=== PATIENT | female | born 1995 | race Caucasian/White ===

== ENCOUNTER 2025-01-25 15:27 | Emergency (ER) | payer BC, SELFPAY ==
--- NOTE | ~2025-01-25 | US_ITS ---
EXAMINATION: US OB <= 14 weeks fetus INDICATION: cramping and vaginal bleeding TECHNIQUE: Sonography of the pelvis was performed by transabdominal techniques. COMPARISON: None. RESULT: Uterus: 12.1 x 9.7 x 10.7 cm. Anteverted. Homogenous myometrium. Intrauterine gestational sac: Single present. Yolk sac: Not visualized. Embryo: Single present. [place] rump length: 7.7 cm, corresponding gestational age 13 weeks, 6 days. Gestational heart rate: 153 bpm. Subgestational hematoma: Absent . Right ovary: 4.2 x 1.9 x 4.4 cm. Vascular flow is present. No adnexal mass. Left ovary: Not visualized. No adnexal mass. Pelvis free fluid: None. IMPRESSION: Single, live intrauterine gestation. Estimated Gestational Age: 13 weeks, 6 days by crown rump length. TIGRE by ultrasound 07/27/2025. Reviewed, dictated and finalized at location K. IMPRESSION: Single, live intrauterine gestation. Estimated Gestational Age: 13 weeks, 6 days by crown rump length. TIGRE by ultra sound 07/27/2025.
[2025-01-25 15:30] VITALS: BP 140/73; PULSE 103; RESP 20; TEMP 36.6; O2SAT 100
--- NOTE | 2025-01-25 15:33 | ED_ITS ---
HPI - Female Genitourinary General Chief complaint: Vaginal Bleeding Stated complaint: 13 wks preg, bleeding Time Seen by Provider: 01/25/25 15:32 Focused HPI: Patient is a 30-year-old the female who presents to the ER with concerns of vaginal bleeding and abdominal cramping while . She reports she is approximately 13 weeks along. Patient reports she has had two ultrasounds (9 weeks and 12 weeks) and routine care. Last night patient started experiencing some abdominal cramps. This morning she noticed bright red blood in the toilet after urinating. Patient reports this is her 1st . Her last menstrual period was October 20, 2024. Patient reports she is still experiencing intermittent abdominal cramping. GENERAL: Well-appearing, well-nourished, and in no acute distress. HEAD: Normocephalic, atraumatic. CHEST: Clear to auscultation. ?No respiratory distress. HEART: Tachycardia.? NEURO: ?Alert and oriented x3. Patient screened in triage and initial orders placed.? ?Additional care and disposition to be based upon?diagnostic testing and treatment. Related Data Allergies Allergy/AdvReac Type Severity Reaction Status Date / Time No Known Allergies Allergy Verified 01/25/25 17:43 Review of Systems 2 Review of Systems: All systems reviewed & are unremarkable except as noted in HPI and below Exam 2 Narrative: GENERAL: Well appearing, well-nourished, non-toxic, in no acute distress. HEAD: Normocephalic, atraumatic. NECK: Supple. No adenopathy, no masses. RESPIRATORY: Airway patent, respirations nonlabored. Clear to auscultation bilaterally, no rales, rhonchi, wheezing. CARDIOVASCULAR: Regular rate and rhythm without murmurs, rubs, or gallops. Peripheral pulses 2+ and equal bilaterally. ABDOMINAL: Soft, nontender, nondistended, no hepatosplenomegaly. Normoactive BS. MUSCULOSKELETAL: Moves all extremities. Strength/ROM intact without gross deformities. SKIN: Warm, dry, normal color. No rashes. NEURO: A&O X3. Speech clear. Cranial nerves II-XII intact. No ataxic movements. PSYCHIATRIC: Appropriate mood and affect. Normal interaction. : Pt's vaginal exam indicates a closed cervix. She had a moderate amount of white discharge in her vaginal canal. No noticeable blood upon vaginal exam. Course Vital Signs Vital signs: Vital Signs Temperature 36.6 C 01/25/25 15:30 Pulse Rate 103 H 01/25/25 15:30 Respiratory Rate 20 01/25/25 15:30 Blood Pressure 140/73 01/25/25 15:30 Pulse Oximetry 100 01/25/25 15:30 Oxygen Delivery Room Air 01/25/25 15:30 Temperature 36.6 C 01/25/25 15:30 Pulse Rate 103 H 01/25/25 15:30 Respiratory Rate 20 01/25/25 15:30 Blood Pressure 140/73 01/25/25 15:30 Pulse Oximetry 100 01/25/25 15:30 Oxygen Delivery Room Air 01/25/25 15:30 MDM - Female Genitourinary MDM Narrative Medical decision making narrative: Patient is a 30-year-old the female who presents to the ER with concerns of vaginal bleeding and abdominal cramping while . She reports she is approximately 13 weeks along. Patient reports she has had two ultrasounds (9 weeks and 12 weeks) and routine care. Last night patient started experiencing some abdominal cramps. This morning she noticed bright red blood in the toilet after urinating. Patient reports this is her 1st . Her last menstrual period was October 20, 2024. Patient reports she is still experiencing intermittent abdominal cramping. Labs Ordered: CBC, CMP, PTT, INR, UA Imaging Ordered: Ultrasound Ob less than 14 weeks Medications Ordered: Ceftriaxone IV, 1 L normal saline IV bolus, Flagyl PO Results: Pt's vaginal ultrasound indicates Single, live intrauterine gestation. Estimated Gestational Age: 13 weeks, 6 days by crown rump length. TIGRE by ultrasound 07/27/2025. Diagnosis: Bacterial vaginosis, Urinary tract infection, vaginal bleeding Consults: Kae Strange ([facility]), pt already established, will follow-up outpatient Patient Education/Shared MDM: Patient's vaginal exam was very reassuring, as there was no blood in the vaginal canal. She does have a fair amount of white vaginal discharge, so patient will be discharged home with a prescription for Flagyl, along with her antibiotic to treat her UTI. Results of vaginal exam and ultrasound shared with patient. She was given a dose of IV ceftriaxone here in the ER. Patient strongly advised to maintain hydration status upon discharge and follow-up with her OBGYN as soon as possible. She will be discharged home with a prescription for Macrobid, along with the Flagyl. Strict return precautions provided. Patient verbalized understanding is in agreement with plan. Vital signs stable at time of discharge. All questions answered. Differential Diagnosis Differential diagnosis: Likely urinary tract infection, bacterial vaginosis, vaginitis, cystitis, dysmenorrhea and other (threatened ) Lab Data Attestation: I reviewed the patient's lab results. 01/25/25 15:45 01/25/25 15:45 Labs: Lab Results 01/25/25 01/25/25 01/25/25 Range/Units 15:45 15:53 15:54 WBC 8.5 (4.5-10.0) K/mm3 RBC 3.90 L (4.2-5.4) M/mm3 Hgb 12.0 (12.0-15.0) g/dL Hct 35.6 L (37.0-47.0) % MCV 91.3 (80-100) fl MCH 30.8 (26-34) pg MCHC 33.7 (32-36) g/dl RDW 12.6 (11.5-14.5) % Plt Count 236 (150-375) k/mm3 MPV 10.8 H (7.4-10.4) fl Immature Gran % (Auto) 0.5 (0-0.5) % Neut % (Auto) 74.0 H (45.5-73.1) % Lymph % (Auto) 20.1 (18.3-44.2) % Bru[place] % (Auto) 4.4 (2.6-8.5) % Eos % (Auto) 0.9 (0-4.4) % Baso % (Auto) 0.1 L (0.2-1.2) % Lymph # (Auto) 1.71 (0.9-3.2) K/mm3 Brule # (Auto) 0.4 (0.1-0.6) K/mm3 Eos # (Auto) 0.1 (0-0.3) K/mm3 Baso # (Auto) 0.0 (0.0-0.1) K/mm3 Abs Immat Gran (auto) 0.04 H (0.00-0.031) K/mm3 Absolute Neuts (auto) 6.3 (1.3-6.7) K/mm3 Absolute Nucleated RBC 0.000 (0.0-0.012) K/mm3 Nucleated RBC % 0.0 (0.0-0.2) % PT 13.5 (11.1-14.7) Seconds INR 1.0 APTT 25.4 (22.3-36.8) Seconds Sodium 135 L (137-145) mmol/L Potassium 3.4 (3.4-5.0) mmol/L Chloride 103 (98-107) mmol/L Carbon Dioxide 22 (22-30) mmol/L Anion Gap 10 (4-12) mmol/L BUN 9 (7-17) mg/dL Creatinine 0.51 L (0.7-1.0) mg/dL Estim Creat Clear Calc 139 ml/min Estimated GFR > 60 (59 - ) Glucose 98 (65-110) mg/dL Calcium 8.9 (8.4-10.2) mg/dL Total Bilirubin 0.4 (0.2-1.3) mg/dL AST 20 (14-36) U/L ALT 28 (6-35) U/L Alkaline Phosphatase 43 (38-126) U/L Total Protein 8.0 (6.3-8.2) g/dL Albumin 4.2 (3.5-5.1) g/dL Urine Color Yellow (Yellow) Urine Appearance Cloudy H (Clear) Urine pH 5.5 (5.0-9.0) Ur Specific [place] 1.032 (1.001-1.035) Urine Protein Trace (Negative) mg/dL Urine Glucose (UA) Negative (Negative) mg/dL Urine Ketones Trace H (Negative) mg/dL Ur Blood (Man) 1+ H (Negative) Urine Nitrate Negative (Negative) Urine Bilirubin Negative (Negative) Urine Urobilinogen 0.2 (<2.0) mg/dL Leukocyte Esterase Rfl 1+ H (Negative) ALICIA/UL Urine RBC 0-2 (0-2) /hpf Urine WBC 21-50 H (0-3) /hpf Ur Squamous Epith Cells Moderate (Few) /hpf Urine Bacteria 3+ H /hpf Urine Casts 0-2 POC Urine HCG, Qual Positive (Negative) Imaging Data Attestation: I personally reviewed and interpreted this imaging study as follows: Radiologist's impression: Impressions Ultrasound 01/25/25 16:44 IMPRESSION: Single, live intrauterine gestation. Estimated Gestational Age: 13 weeks, 6 days by crown rump length. TIGRE by ultrasound 07/27/2025. Discharge Plan Discharge Clinical Impression: Vaginal bleeding, Urinary tract infection, Bacterial vaginosis in Patient Disposition: Home, Self-Care Condition: Stable Instructions: Antibiotic Form, Bacterial Vaginosis (ED), Urinary Tract Infection in (ED) Additional Instructions: Please return to the ER with any worsening symptoms. Follow-up with your OBGYN as soon as possible. Take all medications as prescribed, including regularly scheduled medications. Complete your full dose of antibiotics. Patient Language: Sammarinese Follow-up/Referrals: Kae Strange CNM [Primary Care Provider] - Time of Disposition: 17:49
[2025-01-25 15:51] LABS: Basophils Percent Auto 0.1 % (0.2-1.2); Eosinophils Absolute Auto 0.1 K/mm3 (0-0.3); Eosinophils Percent Auto 0.9 % (0-4.4); Hematocrit 35.6 % (37.0-47.0); Immature Granulocyte Absolute 0.04 K/mm3 (0.00-0.031); Immature Granulocyte Percent A 0.5 % (0-0.5); Lymphocytes Absolute Auto 1.71 K/mm3 (0.9-3.2); Lymphocytes Percent Auto 20.1 % (18.3-44.2); Mean Corpuscular HGB Conc 33.7 g/dl (32-36); Mean Corpuscular Hemoglobin 30.8 pg (26-34); Mean Corpuscular Volume 91.3 fl (80-100); Mean Platelet Volume 10.8 fl (7.4-10.4); Monocytes Absolute Auto 0.4 K/mm3 (0.1-0.6); Monocytes Percent Auto 4.4 % (2.6-8.5); Neutrophils Absolute Auto 6.3 K/mm3 (1.3-6.7); Platelet Count Result 236 k/mm3 (150-375); Red Cell Distribution Width 12.6 % (11.5-14.5); White Blood Count 8.5 K/mm3 (4.5-10.0)
[2025-01-25 15:56] LABS: BEDSIDEPREGUCG Positive (Negative)
[2025-01-25 16:03] LABS: Alanine Aminotransferase 28 U/L (6-35); Albumin Level 4.2 g/dL (3.5-5.1); Alkaline Phosphatase 43 U/L (38-126); Anion Gap 10 mmol/L (4-12); Aspartate Amino Transferase 20 U/L (14-36); Bilirubin,Total 0.4 mg/dL (0.2-1.3); Blood Urea Nitrogen 9 mg/dL (7-17); Calcium 8.9 mg/dL (8.4-10.2); Carbon Dioxide 22 mmol/L (22-30); Chloride 103 mmol/L (98-107); Estimated CRCL calculation 139 ml/min; Estimated Glomerular Filt Rate > 60; Glucose 98 mg/dL (65-110); Potassium 3.4 mmol/L (3.4-5.0); Sodium 135 mmol/L (137-145)
[2025-01-25 16:06] LABS: Add Urine Microscopic? YES; Appearance Urine Cloudy (Clear); Bacteria Urine 3+ /hpf; Bilirubin Urine Negative (Negative); Blood Urine 1+ (Negative); Color Urine Yellow (Yellow); Glucose Urine UA Negative (Negative); Ketones Urine Trace mg/dL (Negative); Leukocyte Esterase Ur 1+ LEU/UL (Negative); Nitrate Urine Negative (Negative); Non Pathogenic Casts 0-2; Protein Urine Trace mg/dL (Negative); RBC Urine 0-2 /hpf (0-2); Specific Grav Ur 1.032 (1.001-1.035); Squamous Epithelial Cell Urine Moderate /hpf (Few); Urobilinogen Urine 0.2 mg/dL (<2.0); WBC Urine 21-50 /hpf (0-3); pH Urine 5.5 (5.0-9.0)
[2025-01-25 16:10] LABS: Prothrombin Time 13.5 Seconds (11.1-14.7)
[2025-01-25 16:11] LABS: Partial Thromboplastin Time 25.4 Seconds (22.3-36.8)
[2025-01-25] MEDS: SODIUM CHLORIDE 0.9% IV 1,000 ML 999 ML IV CONT (17:05)
--- OUTSIDE RECORDS SUMMARY | 2025-01-25 18:02 | XMS_ITS | Data Portability ---
Author Organization [facility] Address [address] [place] [address] Assessment No assessment recorded. Plan of Treatment Reminders Order Date Submit Date Provider Last Modified By Organization Details Last Modified Time Details Appointments None recorded. Lab RPR (rapid plasma reagin), serum [address] [facility], [address] [place] [address], [address], [place], [address], 7 14:13:43 CT + NG + TV, DNA, urine/swab [address] [facility], [address] [place] [address], [address], [place], [address], 7 14:13:42 hepatitis panel (A+B+C), acute, serum [address] [facility], [address] [place] [address], [address], [place], [address], 7 14:13:41 HIV 1+2 AB + HIV 1 p24 Ag, qualitativ e immunoassa y, serum [address] [facility], [address] [place] [address], [address], [place], [address], 7 14:13:43 Referral None recorded. Procedures None recorded. Surgeries None recorded. Imaging None recorded. Medication Orders azithromyc in 500 mg tablet 2016 017 [id number], [address], [place], [address], 7 19:08:09 Patient TargetsNo targets recorded. Patient InstructionsNo instructions recorded. Reason for Referral None Reported. Results Created Date Observation Date Name Description Value Unit Range Abnormal Flag Note LastModifiedBy Organization Detail LastModifiedTime 11/22/19 17 11/23/2016 hepat itis panel (A+B+ C), acute , serum hep A Ab, IgM NEGATI VE negati ve Not Available [facility] ([facility]) [address] [place], [address], 11/26/2016 14:13:41 11/22/19 17 11/23/2016 hepat itis panel (A+B+ C), acute , serum HBsAg screen NEGATI VE negati ve Not Available [facility] ([facility]) [address] [place], [address], 11/26/2016 14:13:41 11/22/19 17 11/23/2016 hepat itis panel (A+B+ C), acute , serum hep B core Ab, IgM NEGATI VE negati ve Not Available [facility] ([facility]) [address] [place], [address], 11/26/2016 14:13:41 11/22/19 17 11/23/2016 hepat itis panel (A+B+ C), acute , serum hep C virus Ab <0.1 S/co_ ratio 0.0-0. 9 NEGAT ABDIRAHMAN: < 0.8 INDET ERMIN ATE: 0.8 - 0.9 POSIT ABDIRAHMAN: > 0.9 THE CDC RECOM MENDS THAT A POSIT ABDIRAHMAN HCV ANTIB CYNTHIA RESUL T BE FOLLO WED UP WITH A HCV NUCLE IC ACID AMPLI FICAT ION TEST (5507 [id number]). Not Available [facility] ([facility]) [address] [facility], [place], [address], 11/26/2016 14:13:41 11/22/19 17 11/26/2016 CT + NG + TV, DNA, urine /swab chlamydia by KING POSITI VE negati ve abnormal Not Available [facility] ([facility]) [address] [place] [address], [id number], 11/26/2016 14:13:42 11/22/19 17 11/26/2016 CT + NG + TV, DNA, urine /swab gonococcus by KING NEGATI VE negati ve Not Available [facility] ([facility]) [address] [place] [address], [id number], 11/26/2016 14:13:42 11/22/19 17 11/26/2016 CT + NG + TV, DNA, urine /swab trich vag by KING NEGATI VE negati ve Not Available [facility] ([facility]) [address] [place] [address], [address], 11/26/2016 14:13:42 11/22/19 17 11/23/2016 RPR (rapi d plasm a reagi n), serum RPR NON REACTI VE non reacti ve Not Available [facility] ([facility]) [address] [place] [address], [address], 11/26/2016 14:13:43 11/22/19 17 11/23/2016 HIV 1+2 AB + HIV 1 p24 Ag, quali tativ e immun oassa y, serum HIV screen 4TH generation wrfx NON REACTI VE non reacti ve Not Available [facility] ([facility]) [address] [place] [address], [address], 11/26/2016 14:13:43 Result Notes None recorded. Medical Equipment None Reported. Medications Name Sig Start Date Stop Date Status Note LastModified by Organization Details LastModified Time azithromycin 500 mg tablet Take 2 tablets by oral route once. 2016 active Not Available Not Available Not Avai lable Vitals Date Recorded Body height Body weight Body mass index (BMI) Heart rate Oxygen saturation Oxygen saturation in Arterial blood by Pulse oximetry Body temperature Systolic blood pressure Diastolic blood pressure Provider Name and Address Organization Details Last Updated DateTime 7 157.48 cm 86132.9 7 g 24.7 kg/m2 89 /min 95 % 95 % 98.5 [degF] 100 mm[Hg] 60 mm[Hg] [facility] - [facility] 7 18:59:26 Social History None recorded. Functional Status None recorded. Mental Status None recorded. Family History Nothing Reported. Medical History No medical history recorded. Gynecological HistoryNo gynecological history recorded. Obstetrics History GPAL:G 0 P 0 0 0 0 Past Encounters Encounter ID Performer Location Encounter Start Date Encounter Closed Date Diagnosis/Indication Diagnosis SNOMED-CT Code Diagnosis ICD10 Code Diagnosis Note [id number] Raghu Rubio PA-C [facility] [address] [place] [address] 11/21/2016 18:42:40 11/22/2016 10:40:26 Venereal disease screening 148000267 Z11.3 Will screen for STI and report results when available. Advised pt to limit number of partners and always use condoms to reduce STI risk. Chlamydial urethritis 23 5007195 A56.01 Will treat with Azithromyc in. Take as directed and abstain from sexual activity x 2 weeks. Partner will need to be treated as well. Health Concerns Section Related Observation LastModified by Organization Detai ls LastModified Time None Recorded Concern Status LastModified by Organization Details LastModified Time None Recorded Advance Directives Directive None Recorded Payers Encounter Date Sequence Insurance Name Policy Number Policy Peralta Covered Member ID Peralta Member ID Guarantor Name 11/21/2016 1 [place] [id number] Cory Seaman [id number] Danette Seaman 11/21/2016 2 [place] [id number] Senait Seaman [id number] Danette Seaman Notes Date Note Type Note Provider Name and Address Organization Details Recorded Time 11/21/2016 text/html Danette is a [age] year old female here today for STI screening. She recently tested positive for chlamydia for [facility] but was only treated for BV. She has no other concerns at this time. She is experiencing vaginal discharge and dysuria, but denies fever, abdominal pain or vaginal lesions. Raghu Rubio PA-C Attn: [employer]ing,[address], [place], [address], [place] [facility] 11/21/2016 19:11:37 OBGyn Episode No OBEpisode recorded.
--- OUTSIDE RECORDS SUMMARY | 2025-01-25 18:02 | XMS_ITS | Clinical Summary ---
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 Gender Identity Not on file Sexual Orientation Not on file Plan of Treatment Health Maintenance Due Date Last Done Comments Hepatitis C Virus (HCV) Screening 1997 Pap Smear 2018 Influenza Immunization (#1) 2024 11/0 11/2014, 10/06/2013, 07/10/2011 SARS-COV-2 Immunization ( season) 2024 Respiratory Syncytial Virus (RSV) Immunization (Adult) (1 - 1-dose 75+ series) 01/16/2072 Hepatitis B Immunization Completed 998, 1997, 1997 DTaP/Tdap/Td Immunization Discontinued 2008, 01/17/2001, 08/29/1998, Additional history exists Meningococcal Immunization (ACWY) Aged Out 06/29/2009 No longer eligible based on patient's age to complete this topic TdaP Immunization Completed 06/29/2009 Human Papillomavirus (HPV) Immunization Discontinued 06/17/2011, 11/10/2010, 07/03/2010 Pneumococcal Immunization Combined Aged Out No longer eligible based on patient's age to complete this topic Rotavirus Immunization Aged Out No lo nger eligible based on patient's age to complete this topic
--- OUTSIDE RECORDS SUMMARY | 2025-01-25 18:02 | XMS_ITS | Clinical Summary ---
Author Organization [facility] Address [address] [place] [address] Care Team Providers Care Biofuels Engineering Manager Name Role Phone Unavailable Primary Care Provider Unavailabl e Source Comments [facility],non-owned Affiliates and Associated Physician Practices is amultiple site organization consisting of ambulatory clinics and hospital sitesin [place], [place], [place]. This disclosure is being madepursuant to the Care Everywhere program and may not contain all information available regarding this patient. Last updated 18.[facility] Allergies No known active allergies Medications * Be aware that medications may not be up to date on this document. Alwaysverify current medications with the patient. Medication Sig Dispensed Refills Start Date End Date Status fluticasone propionate (FLONASE) 50 MCG/ACT nasal sprayIndications:Acut e otitis media, unspecified otitis media type [place] 2 sprays into each nostril once daily 1 bottles 11/10/2018 Active albuterol HFA (VENTOLIN HFA) 108 (90 BASE) MCG/ACT inhalerIndications:Ac hao bronchitis, unspecified organism Inhale 2 puffs by mouth every 6 hours as needed for Wheezing or Cough 1 Inhaler 11/10/2018 Active Active Problems No known active problems Family History Medical History Relation Name Comments Eczema Father Other - Cardiac Mother Asthma Neg Hx Autoimmune Disease Neg Hx Bipolar Disorder Neg Hx Cancer - Breast Neg Hx Cancer - Colon Neg Hx Cancer - Other Neg Hx Cancer - Ovarian Neg Hx Cancer - Pancreatic Neg Hx Cancer - Prostate Neg Hx Depression Neg Hx Hypertension Neg Hx Migraine Neg Hx Osteoporosis Neg Hx Seizures Neg Hx Sudd. <30 Neg Hx Thyroid Disease Neg Hx Ulcerative Colitis Neg Hx Relation Name Status Comments Father Alive Mother Alive Social History Tobacco Use Types Packs/Day Years Used Date Smoking Tobacco: Never Smokeless Tobacco: Never Tobacco Cessation:Counseling Given: No Alcohol Use Standard Drinks/Week Comments Yes 0 (1 standard drink = 0.6 oz pur e alcohol) occ Sex and Gender Information Value Date Recorded Sex Assigned at Not on file Gender Identity Not on file Sexual Orientation Not on file Last Filed Vital Signs Vital Sign Reading Time Taken Comments Blood Pressure 108/70 11/10/2018 10:24 AM PRINCIPAL SECRETARY Pulse 88 11/10/2018 10:24 AM PRINCIPAL SECRETARY Temperature 37 C (98.6 F) 11/10/2018 10:24 AM PRINCIPAL SECRETARY Respiratory Rate 17 11/10/2018 10:24 AM PRINCIPAL SECRETARY Oxygen Saturation 98% 11/10/2018 10:24 AM PRINCIPAL SECRETARY Inhaled Oxygen Concentration - - Weight 65.8 kg (145 lb) 11/10/2018 10:24 AM PRINCIPAL SECRETARY Height 157.5 cm (5' 2 ) 11/10/2018 10:24 AM PRINCIPAL SECRETARY Body Mass Index 26.52 11/10/2018 10:24 AM PRINCIPAL SECRETARY Plan of Treatment Health Maintenance Due Date Last Done Comments PAP SMEAR 1997 HIV SCREENING 01/16/2012 HEPATITIS C SCREENING 01/11/2015 DTAP/TDAP/TD VACCINES (1 - Tdap) 01/16/2016 HEPATITIS B VACCINE (1 of 3 - 19+ 3-dose series) 01/16/2016 COVID-19 VACCINE ( - 2023-2 5 season) 2024 INFLUENZA VACCINE (#1) 2024 DEPRESSION SCREENING 11/03/2024 ZOSTER VACCINE (1 of 2) 2047 HIB VACCINE Aged Out No longer eligi ble based on patient's age to complete this topic HPV VACCINE Aged Out No longer eligi ble based on patient's age to complete this topic MENINGOCOCCAL (Group B) VACC INE SHARED DECISION-MAKING Aged Out No longer eligibl e based on patient's age to complete this topic MENINGOCOCCAL GROUPS A/C/Y/W VACCINE Aged Out No longer eligible b ased on patient's age to complete this topic PNEUMOCOCCAL VACCINE Aged Out No long er eligible based on patient's age to complete this topic
[2025-01-25] MEDS: metroNIDAZOLE 500 MG TABLET PO (18:10)
[2025-01-25 18:14] VITALS: BP 125/66; PULSE 89; RESP 18; O2SAT 100
--- OUTSIDE RECORDS SUMMARY | 2025-01-25 18:24 | XMS_ITS | Clinical Summary ---
Author Organization [facility] Address [address] [place] [id number] Care Team Providers Care Tin Cutter Name Role Phone Brooks Rebolledo MD Primary Care Provider [phone] Allergies No known active allergies Medications No known medications Active Problems No known active problems Immunizations Name Administration Dates Next Due Dtap 01/17/2001, 8,1997, 997,1997 Fluzone 6 Months+ Quad (0.5 mL Prefilled Syringe) 11/08/2020 HPV4 (Gardasil) 06/17/2011,11/10/2010,07/03/2010 Hepatitis B (Generic Peds) 02/09/1998,1997 ,1997 IPV/OPV 01/17/2001,1997,1997 Influenza Adult (Generic) 10/20/2021 MMR 03/01/2003,02/09/1998 Menactra 06/29/2009 Opv 08/29/1998 [employer] COVID-19 (ORIGINAL FORMULATION, PURPLE CAP) mRNA, LNP-S, PF, 30 MCG/0.3 ML DOSE 02/20/2021,01/03/2021 Tdap (Boostrix) 06/29/2009 Varicella Vaccine 03/05/2007,06/27/1998 Family History Medical History Relation Comments Alcohol Abuse Father COPD Father Diabetes Father Kidney Cancer Maternal Grandfather Arthritis Maternal Grandmother None Mother Colon Cancer Paternal Grandfather Lung Cancer Paternal Grandfather Relation Status Comments Father Alive Maternal Grandfather Maternal Grandmother Mother Alive Paternal Grandfather Social History Tobacco Use Types Packs/Day Years Used Date Smoking Tobacco: Never Smokeless Tobacco: Never Tobacco Cessation:Counseling Given: No Alcohol Use Standard Drinks/Week Comments Yes 0 (1 standard drink = 0.6 oz pur e alcohol) SOCIAL AUDIT-C Answer Date Recorded Frequency of Alcohol Consumption Never 02/08/2019 Average Number of Drinks Not on file 019 Frequency of Binge Drinking Not on file 06/2019 PHQ-2 Answer Date Recorded Patient Health Questionnaire-2 Score 0 05/05/2024 Comments No Sex and Gender Information Value Date Recorded Sex Assigned at Not on file Legal Sex Female 1:24 PM CDT Gender Identity Not on file Sexual Orientation Not on file Last Filed Vital Signs Vital Sign Reading Time Taken Comments Blood Pressure 112/75 05/05/2024 8:13 AM CDT Pulse 91 05/05/2024 8:13 AM CDT Temperature 36.7 C (98.1 F) 05/05/2024 8:13 AM CDT Respiratory Rate 16 05/05/2024 8:13 AM CDT Oxygen Saturation 99% 05/05/2024 8:13 AM CDT Inhaled Oxygen Concentration - - Weight 76.2 kg (168 lb) 05/05/2024 8:13 AM CDT Height 157.5 cm (5' 2 ) 05/05/2024 8:13 AM CDT Body Mass Index 30.73 05/05/2024 8:13 AM CDT Plan of Treatment Health Maintenance Due Date Last Done Comments Cervical Cancer Screening Pap Smear (Age 21 to 29) Every 3 Years 1997 Pneumococcal Vaccine: Pediatrics (0 to 5 Years) and At-Risk Patients (6 to 64 Years) (1 of 2 - PCV) 2003 DTaP, Tdap and Td Vaccines (7 - Td or Tdap) 06/29/2019 06/29/2009, 01/17/2001, 08/29/1998, Additional history exists COVID-19 Vaccine ( season) 2024 10/20/2021, 02/20/2021, 01/30/2021, Additional history exists Influenza Adult (#1) 2024 10/20/2021, 11/08/2020, 09/03/2015, Additional history exists PHQ-2 (Physician [place]) 11/03/2024 05/05/2024 Annual Physical 05/05/2025 05/05/2024, 11/08/2020 Cervical Cancer Screening 05/05/2025 Po stponed from 1997 (Going to Outside Clinic) Hepatitis B Vaccines Completed 02/09/1998, 1997, 1997 Meningococcal Vaccine Aged Out 06/29/2009 No tom rafael eligible based on patient's age to complete this topic HPV Vaccines Completed 06/17/2011, 06/2011, 07/03/2010 Hepatitis C Completed 05/05/2024 Meningococcal B Vaccine Aged Out No l onger eligible based on patient's age to complete this topic RSV Immunizations Under 20 Months Aged Out No longer eligible based on patient's age to complete this topic Procedures Procedure Name Priority Date/Time Associated Diagnosis Comments HEPATITIS C ANTIBODY Routine 05/05/2024 8:53 AM CDT Need for hepatitis C screening test from Last 3 Months or Most Recently Relevant to Health Maintenance Results * HEPATITIS C ANTIBODY (05/05/2024 8:53 AM CDT) HEPATITIS C AB NON-REACTI VE NON-REACT ABDIRAHMAN 05/05/2024 7:34 PM CDT [facility] Comment: ANTIBODIES TO HCV NOT DETECTED. DOES NOT EXCLUDE THE POSSIBILITY OF EXPOSURE TO HCV. 05/05/2024 8:53 AM CDT Brooks Rebolledo MD LABORATORY Final Result [facility] [address] [place] [address], [id number] from Last 3 Months or Most Recently Relevant to Health Maintenance Insurance [facility] Care Teams Tin Cutter Relationship Specialty Start Date End Date Brooks Rebolledo MD [address], [place] [id number] PCP - General FAMILY PRACTICE 11/06/20
--- OUTSIDE RECORDS SUMMARY | 2025-01-25 18:24 | XMS_ITS | Clinical Summary ---
Author Organization [facility] Address [address] [place] [address] Care Team Providers Care Financial Retirement Plan Specialist Name Role Phone Unavailable Primary Care Provider Unavailabl e Source Comments [facility],non-owned Affiliates and Associated Physician Practices is amultiple site organization consisting of ambulatory clinics and hospital sitesin [place], [place], [place] and [place]. This disclosure is being madepursuant to the Care Everywhere program and may not contain all information available regarding this patient. Last updated 18.[employer] [facility] Allergies No known active allergies Medications * Be aware that medications may not be up to date on this document. Alwaysverify current medications with the patient. 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
--- OUTSIDE RECORDS SUMMARY | 2025-01-25 18:24 | XMS_ITS | Data Portability ---
Author Organization [facility] [place] Address [address] [place] [address] [place] [address] Care Team Providers Care Molecular Biology Director Name Role Phone HALLIE CRISTOBAL Primary Care Provider Assessment No assessment recorded. Plan of Treatment Reminders Order Date Submit Date Provider Last Modified By Organization Details Last Modified Time Details Appointments OB ROUTINE 2024 09:15A M Kae Strange CNM Not available Not available Not available Lab drug screen, urine 2024 025 [email or web address] [place], [address], [place], [address], 01/12/2025 19:07:59 Referral None recorded. Procedures None recorded. Surgeries None recorded. Imaging US, obstetric , nuchal transluce ncy 2024 025 [email or web address] [place] [facility] [address], [place], [address], 01/12/2025 18:21:50 Medication Orders None recorded. Patient TargetsNo targets recorded. Patient InstructionsNo instructions recorded. Reason for Referral None Reported. Results Created Date Observation Date Name Description Value Unit Range Abnormal Flag Note LastModifiedBy Organization Detail LastModifiedTime 01/18/2001/17/2025 [UNIT Y] ANEUP LOIDY NIPT fraction 8.6% normal Not Available Anshul Munoz[address], [place], [address], 01/17/2025 18:41:18 01/18/202025 [UNIT Y] ANEUP LOIDY NIPT 22Q11.2 microdeletio n LOW RISK <1 in 10,000 normal Not Available [facility] [address] [facility], [place], [address], 01/17/2025 18:41:18 01/18/20 25 01/17/2025 [UNIT Y] ANEUP LOIDY NIPT sex chromosome aneuploidy NOT DETECT ED normal Not Available [facility] [address] [facility], [place], [address], 01/17/2025 18:41:18 01/18/20 25 01/17/2025 [UNIT Y] ANEUP LOIDY NIPT monosomy X LOW RISK <1 in 10,000 normal Not Available [facility] [address] [facility], [place], [address], 01/17/2025 18:41:18 01/18/20 25 01/17/2025 [UNIT Y] ANEUP LOIDY NIPT trisomy 13 LOW RISK <1 in 10,000 normal Not Available [facility] [address] [facility], [place], [address], 01/17/2025 18:41:18 01/18/20 25 01/17/2025 [UNIT Y] ANEUP LOIDY NIPT trisomy 18 LOW RISK <1 in 10,000 normal Not Available [facility] [address] [facility], [place], [address], 01/17/2025 18:41:18 01/18/20 25 01/17/2025 [UNIT Y] ANEUP LOIDY NIPT trisomy 21 LOW RISK <1 in 10,000 normal Not Available [facility] [address] [facility], [place], [address], 01/17/2025 18:41:18 01/18/20 25 01/17/2025 [UNIT Y] ANEUP LOIDY NIPT sex FEMALE normal Not Available [facility] [address] [facility], [place], [address], 01/17/2025 18:41:18 01/18/20 25 01/17/2025 [UNIT Y] ANEUP LOIDY NIPT gestation SINGLE TON normal Not Available [facility] [address], [place], [address], 01/17/2025 18:41:18 01/18/20 25 01/17/2025 [UNIT Y] ANEUP LOIDY NIPT for detailed report, see pdf See PDF normal Not Available [facility] [address], [place], [address], 01/17/2025 18:41:18 01/22/20 25 01/21/2025 [UNIT Y] ASAD Phillips sickle cell disease/beta -thalassemia /hemoglobino pathies carrier screen NEGATI VE normal Not Available [facility] [address], [place], [address], 01/21/2025 18:42:50 01/22/20 25 01/21/2025 [UNIT Y] ASAD Phillips alpha-thalas semia carrier screen NEGATI VE normal Not Available [facility] [address], [place], [address], 01/21/2025 18:42:50 01/22/20 25 01/21/2025 [UNIT Y] ASAD Phillips cystic fibrosis carrier screen NEGATI VE normal Not Available [facility] [address], [place], [address], 01/21/2025 18:42:50 01/22/20 25 01/21/2025 [UNIT Y] ASAD Phillips spinal muscular atrophy carrier screen NEGATI VE 2 SMN1 copies , SNP not presen t normal Not Available [facility] [address], [place], [address], 01/21/2025 18:42:50 01/22/20 25 01/21/2025 [UNIT Y] ASAD Phillips for detailed report, see pdf See PDF normal Not Available [facility] [address], [place], [address], 01/21/2025 18:42:50 01/13/20 25 01/12/2025 CBC W/DIF F WBC 9.7 10'3/ uL 3.5-10 .5 Not Available [facility] (Lab) [address], [place], [address], 01/13/2025 13:50:11 01/13/20 25 01/12/2025 CBC W/DIF F RBC 3.98 10'6/ uL (based on docume nted legal sex) 3.80-5 .20 Not Available [facility] (Lab) [address], [place], [address], 01/13/2025 13:50:11 01/13/20 25 01/12/2025 CBC W/DIF F HGB 12.4 g/dL (based on docume nted legal sex) 11.6-1 5.4 Not Available [facility] (Lab) [address], [place], [address], 01/13/2025 13:50:11 01/13/20 25 01/12/2025 CBC W/DIF F HCT 36.0 % (based on docume nted legal sex) 34.0-4 5.0 Not Available [facility] (Lab) [address], [place], [address], 01/13/2025 13:50:11 01/13/20 25 01/12/2025 CBC W/DIF F MCV 90.5 fL 80.0-9 9.0 Not Available [facility] (Lab) [address], [place], [address], 01/13/2025 13:50:11 01/13/20 25 01/12/2025 CBC W/DIF F MCH 31.2 pg 27.0-3 4.0 Not Available [facility] (Lab) [address] [place], [address], 01/13/2025 13:50:11 01/13/20 25 01/12/2025 CBC W/DIF F MCHC 34.4 g/dL 32.0-3 5.5 Not Available [facility] (Lab) [address], [place], [address], 01/13/2025 13:50:11 01/13/20 25 01/12/2025 CBC W/DIF F RDW 12.7 % 11.0-1 5.0 Not Available [facility] (Lab) [address], [place], [address], 01/13/2025 13:50:11 01/13/20 25 01/12/2025 CBC W/DIF F plt 247 10'3/ uL 150-40 0 Not Available [facility] (Lab) [address], [place], [address], 01/13/2025 13:50:11 01/13/20 25 01/12/2025 CBC W/DIF F MPV 11.6 fL 8.8-12 .1 Not Available [facility] (Lab) [address], [place], [address], 01/13/2025 13:50:11 01/13/20 25 01/12/2025 CBC W/DIF F neutrophils 70.5 % 34.0-7 3.0 Not Available [facility] (Lab) [address], [place], [address], 01/13/2025 13:50:11 01/13/20 25 01/12/2025 CBC W/DIF F lymphocytes 22.3 % 15.0-5 0.0 Not Available [facility] (Lab) [address], [place], [address], 01/13/2025 13:50:11 01/13/20 25 01/12/2025 CBC W/DIF F monocytes 5.9 % 1.0-15 .0 Not Available [facility] (Lab) [address], [place], [address], 01/13/2025 13:50:11 01/13/20 25 01/12/2025 CBC W/DIF F eosinophils 0.7 % 0.0-8. 0 Not Available [facility] (Lab) [address], [place], [address], 01/13/2025 13:50:11 01/13/20 25 01/12/2025 CBC W/DIF F basophils 0.2 % 0.0-2. 0 Not Available [facility] (Lab) [address], [place], [address], 01/13/2025 13:50:11 01/13/20 25 01/12/2025 CBC W/DIF F immature granulocytes 0.4 % no define d refere nce range Immat ure Granu locyt es (IG) repre sents autom ated enume ratio n of Metam yeloc ytes, Myelo cytes and Promy elocy daryl when IG is < 5%. Blast s are not inclu ded in IG and repor gordon separ ately if prese nt. Not Available [facility] (Lab) [address], [place], [address], 01/13/2025 13:50:11 01/13/20 25 01/12/2025 CBC W/DIF F absolute neutrophils 6.8 10'3/ uL 1.5-8. 0 Not Available [facility] (Lab) [address], [place], [address], 01/13/2025 13:50:11 01/13/20 25 01/12/2025 CBC W/DIF F absolute lymphocytes 2.2 10'3/ uL 1.0-4. 0 Not Available [facility] (Lab) [address], [place], [address], 01/13/2025 13:50:11 01/13/20 25 01/12/2025 CBC W/DIF F absolute monocytes 0.6 10'3/ uL 0.2-1. 0 Not Available [facility] (Lab) [address] [facility], [place], [address], 01/13/2025 13:50:11 01/13/20 25 01/12/2025 CBC W/DIF F absolute eosinophils 0.1 10'3/ uL 0.0-0. 6 Not Available [facility] (Lab) [address] [facility], [place], [address], 01/13/2025 13:50:11 01/13/20 25 01/12/2025 CBC W/DIF F absolute basophils 0.0 10'3/ uL 0.0-0. 3 Not Available [facility] (Lab) [address] [facility], [place], [address], 01/13/2025 13:50:11 01/13/20 25 01/12/2025 CBC W/DIF F absolute immature granulocytes 0.0 10'3/ uL 0.00-0 .10 Refer ence range s for nonbi nary/ inter sex or unspe cifie d gende r patie nts have not been estab lishe d. Pleas e refer to the follo wing table for range s estab lishe d for cisge nder patie nts and evalu ate in the clini amy tanner xt of the indiv idual patie nt: https ://la joanne book. nm.or g/gen derx Not Available [facility] (Lab) [address] [facility], [place], [address], 01/13/2025 13:50:11 01/13/20 25 01/12/2025 HEPAT ITIS B SURFA CE ANTIG EN hepatitis B surface antigen Non-re active non-re active This assay was perfo rmed using [employer] ratio n reage nts and test kits. Value s obtai maribel with other assay metho ds or kits canno t be used inter adamson eably . Not Available [facility] (Lab) [address] [facility] [address], [place], [address], 01/13/2025 13:50:11 01/13/20 25 01/12/2025 HIV 1/2 ANTIG EN/AN TIBOD Y, REFLE X CONFI RMATI ON HIV antigen/anti body Nonrea ctive nonrea ctive HIV-1 antig en and HIV-1 /HIV- 2 antib odies were not detec gordon. No labor atory evide nce of HIV infec tion. Not Available [facility] (Lab) [address], [place], [address], 01/13/2025 13:50:12 01/13/20 25 01/12/2025 HEPAT ITIS C ANTIB CYNTHIA SCREE N, REFLE X TO CONFI RMATI ON hepatitis C antibody Non-re active non-re active Antib odies to HCV Not Detec gordon, does not exclu de the possi bilit y of expos ure to HCV. Not Available [facility] (Lab) [address], [place], [address], 01/13/2025 13:50:12 01/13/20 25 01/12/2025 RUBEL LA IGG ANTIB CYNTHIA, QUANT rubella antibodies, IgG Non-Re active reacti ve abnormal Not Available [facility] (Lab) [address], [place], [address], 01/13/2025 13:50:12 01/13/20 25 01/12/2025 RUBEL LA IGG ANTIB CYNTHIA, QUANT rubella antibodies, IgG quant <10.0 IU/mL >=10 low Non-r eacti ve (Non- Immun e) <10 IU/mL React dario (Immu ne) > or = 10 IU/mL Not Available [facility] (Lab) [address], [place], [address], 01/13/2025 13:50:12 01/13/20 25 01/12/2025 TYPE/ RH/SC REEN ABO/Rh type A POS Not Available [facility] (Lab) [address], [place], [address], 01/13/2025 13:50:13 01/13/20 25 01/12/2025 TYPE/ RH/SC REEN antibody screen NEG Not Available [facility] (Lab) [address], [place], [address], 01/13/2025 13:50:13 01/13/20 25 01/12/2025 TYPE/ RH/SC REEN exp date 2024 23:59 Not Available [facility] (Lab) [address], [place], [address], 01/13/2025 13:50:13 01/13/20 25 01/12/2025 RPR SCREE N, REFLE X TITER /CONF IRMAT ION RPR qualitative Nonrea ctive nonrea ctive Not Available [facility] (Lab) [address], [place], [address], 01/13/2025 13:50:13 01/13/20 25 01/12/2025 HEMOG LOBIN A1C hemoglobin A1C 5.0 % 4.0-5. 6 The Ameri can Diabe daryl Assoc iatio n recom mends that a prima ry goal of thera py hero d be a HBA1C of < 7% and that physi cians shoul d reeva luate the treat ment regim en in patie nts with HBA1C value s consi stent ly > 8%. <5.7% Raina l 5.7 - 6.4% Incre ased risk for diabe daryl >=6.5 % Diagn ostic of diabe daryl <7.0% Goal of thera py >8.0% Actio n sugge sted Not Available [facility] (Lab) [address], [place], [address], 01/13/2025 13:50:13 01/13/20 25 01/12/2025 CT/GC AND TRICH OMONA S VAGIN JENN (RRNA ), URINE chlamydia trachomatis, PCR Negati ve negati ve Not Available [facility] (Lab) [address], [place], [address], 01/18/2025 12:53:12 01/13/20 25 01/12/2025 CT/GC AND TRICH OMONA S VAGIN JENN (RRNA ), URINE neisseria gonorrhoeae, PCR Negati ve negati ve Not Available [facility] (Lab) [address], [place], [address], 01/18/2025 12:53:12 01/13/20 25 01/12/2025 CT/GC AND TRICH OMONA S VAGIN JENN (RRNA ), URINE trichomonas vaginalis ribosomal RNA (rrna) Negati ve negati ve : 10/20 : Y : Routi ne : ENDOC ERVIC AL/CE RVICA L Not Available [facility] (Lab) [address], [place], [address], 01/18/2025 12:53:12 01/13/20 25 01/12/2025 CULTU RE: URINE result report SEE RESULT S BELOW Test: Cultu re: Urine Speci men Sourc e: Urine - Clean Catch Speci men Type: Urine Speci men Date: 2024 1721 Resul t Date: 2024 2231 Resul t Statu s: Final resul t Abnor mal: No Resul ting Lab: [facility] [address] [facility] [address] Tel: CULTU RE ----- ----- ----- --- Organ ism(s ) consi stent with uroge nital or skin ann . Repea t cultu re if sympt oms indic ate. Not Available [facility] (Lab) [address] [place], [address], 01/18/2025 12:53:12 01/13/20 25 01/12/2025 IMAGE GUIDE D PAP, REFLE X HPV IF ASCUS ONLY image guided Pap, reflex HPV ASCUS only SEE RESULT S BELOW CASE REPOR T: Cytol ogy Gynec ologi amy Repor t Case: [id number] Autho khloe g Provi melissa: Kae Turner NP Colle cted: 03/12 /2025 1721 Order ing Locat ion: [place] Patho logalexandria Recei jose: 01/13 1057 First Scree n: Strut z, Adam bolanos, CT Speci men: Scree miguel Pap - Image d, Cervi x STATE MENT OF ADEQU ACY: Satis facto ry for evalu ation Trans forma tion zone compo nent prese nt ----- ----- ----- ----- ----- ----- ----- ----- ----- ----- ----- ----- ----- ----- ----- ----- ----- ---- FINAL DIAGN OSIS: Negat dario for Intra epith elial Manny phillips or Ronnie sandhu (KINSEY) . Funga l organ isms morph ologi shonna consi stent with Jailyn da spp. Elect bakari gabriel d by Adam bolanos Strut z, CT on 2024 at 1149 CDT ----- ----- ----- ----- ----- ----- ----- ----- ----- ----- ----- ----- ----- ----- ----- ----- ----- ---- COMME NT: This speci men was revie wed by a Cytot echno logis t and/o r Patho logis t (as indic ated in this repor t) after evalu ation using the Thinp rep Imagi ng Syste m. CLINI AMY INFOR MATIO N: Menst rual Statu s: LMP (if appli cable ): Clini amy Histo ry/Pr eviou s Pap: Type of Neopl jarrett (if appli cable ): Signi fican t Clini amy Findi ngs: Other Histo ry: Hormo lucero (if appli cable ): PAP EDUCA ANGIE L NOTE: The Pap Test is a scree miguel test with an inher ent false negat dario rate. Liqui d-bas ed sampl ing march decre ase, but will not elimi erica, false negat dario resul ts. A negat dario resul t does not precl ude the prese nce and/o r devel opmen t of disea se, since the prese nce of abnor mal cells in the sampl e depen ds on the locat ion of the lesio n and sampl ing techn ique. Eliza nued regul ar scree miguel is the best metho d of cance r preve ntion . If repor gordon cytol ogic findi ng do not corre late with physi amy and/o r histo rical findi ngs, furth er inves tigat ion is recom hayley d, as clini shonna tarango nted. Not Available [facility] (Lab) [address] [facility], [place], [address], 01/18/2025 12:53:13 01/13/20 25 01/12/2025 drug scree n, urine Amphetamines : negati ve Not Available [place] [address], [place], [address], 01/12/2025 19:07:07 01/13/20 25 01/12/2025 drug scree n, urine Cannabinoids : negati ve Not Available [place] [address], [place], [address], 01/12/2025 19:07:07 01/13/20 25 01/12/2025 drug scree n, urine Cocaine: negati ve Not Available [place] [address], [place], [address], 01/12/2025 19:07:07 01/13/20 25 01/12/2025 drug scree n, urine Opiates: negati ve Not Available [place] [address], [place], [address], 01/12/2025 19:07:07 01/13/20 25 01/12/2025 drug scree n, urine Phenocyclidi ne: negati ve Not Available [place] [address], [place], [address], 01/12/2025 19:07:07 01/13/20 25 01/12/2025 drug scree n, urine Barbiturates : negati ve Not Available [place] [address], [place], [address], 01/12/2025 19:07:07 01/13/20 25 01/12/2025 drug scree n, urine Benzodiazepi lucero: negati ve Not Available [place] [address], [place], [address], 01/12/2025 19:07:07 01/13/20 25 01/12/2025 drug scree n, urine Ethanol: negati ve Not Available [place] [address], [place], [address], 01/12/2025 19:07:07 01/13/20 25 01/12/2025 drug scree n, urine Hallucinogen s: negati ve Not Available [place] [address], [place], [address], 01/12/2025 19:07:07 01/13/20 25 01/12/2025 drug scree n, urine Inhalants: negati ve Not Available [place] [address], [place], [address], 01/12/2025 19:07:07 01/13/20 25 01/12/2025 drug scree n, urine Anabolic Steroids: negati ve Not Available [place] [address], [place], [address], 01/12/2025 19:07:07 01/13/20 25 01/12/2025 drug scree n, urine Other: negati ve Not Available [place] [address], [place], [address], 01/12/2025 19:07:07 12/22/19 25 12/22/2024 US, obste tric, 1st trime ster No observ ation record ed. [email or web address] [address], [place], [address], 12/24/2024 00:22:54 01/13/20 25 01/12/2025 US, obste tric, nucha l trans lucen cy No observ ation record ed. [facility] [address], [place], [address], 01/12/2025 17:55:32 01/13/20 25 01/12/2025 US, obste tric, nucha l trans lucen cy No observ ation record ed. [email or web address] [address], [place], [address], 01/12/2025 12:33:04 01/26/20 25 01/25/2025 imagi ng/di agnos tic resul t No observ ation record ed. [facility] [address], [place], [address], 01/25/2025 18:03:38 Result Notes None recorded. Problems Name Problem SNOMED Code Status Onset Date Resolution Date Notes Provider Name and Address Organization Details Recorded Time 11079598 Active 2024 Fidelia merchant, [facility] 19:08:15 Asthma 530460648 Active no meds Kae Strange CNM [address], [place], [address], [facility] 5 09:12:07 Polycystic ovary syndrome 132713020 Active Kae Strange CNM [address], [place], [address], [facility] 5 09:12:24 History of depression 621201513 Active no current meds Kae Strange CNM [address], [place], [address], [facility] 5 09:12:55 Problem Notes None recorded. Procedures Surgical History Date Name Laterality Status Provider Name and Address Organization Details Recorded Time 01/13/20 25 Date of Last Pap Smear completed Fidelia [facility] 01/12/2025 19:06:17 11/03/19 21 extraction of wisdom tooth completed Fidelia [facility] 12/22/2024 11:08:24 11/03/19 18 [facility] 12/22/2024 11:08:15 Imaging Results Imaging Date Name Status LastModified by Organization Details LastModified Time 12/22/2024 US, obstetric, 1st trimester completed [email or web address] [address], [place], [address], 12/24/2024 00:22:54 01/12/2025 US, obstetric, nuchal translucency completed toney Briceño [address], [place], [address], 01/12/2025 17:55:32 01/12/2025 US, obstetric, nuchal translucency completed [email or web address], [place], [address], 01/12/2025 12:33:04 01/25/2025 imaging/diagnost ic result active [facility] [address], [place], [address], 01/25/2025 18:03:38 Procedure Notes None recorded. Medical Equipment None Reported. Allergies No known drug allergies Medications Not known to be on any medication Vitals Date Recorded Body height Body mass index (BMI) Body weight Systolic blood pressure Diastolic blood pressure Provider Name and Address Organization Details Last Updated DateTime 12/22/2024 158.75 cm 32.8 kg/m2 26771.81 g 133 mm[Hg] 84 mm[Hg] Fidelia Alves [facility] 11:02:31 Date Recorded Body height Body mass index (BMI) Body weight Systolic blood pressure Diastolic blood pressure Provider Name and Address Organization Details Last Updated DateTime 01/12/2025 158.75 cm 33.5 kg/m2 21998.18 g 129 mm[Hg] 86 mm[Hg] Fidelia Alves [facility] 19:05:45 Social History Question Answer Notes LastModified by Organizat ion Details LastModified Time Tobacco Smoking Status Never Smoker Fidelia Alves [facility] 12/22/2024 11:07:44 Do You Have An Advance Directive? No [email or web address] Information not available 12/22/2024 What Is Your Level Of Alcohol Consumption? Occasional [email or web address] Information not available 01/12/2025 If You Are , What Was Your Level Of Alcohol Consumption Prior To ? Occasional [email or web address] Information not available 12/22/2024 How Many Years Have You Consumed Alcohol? 6 [email or web address] Information not available 12/22/2024 Are You Blind Or Do You Have Difficulty Seeing? No Information not available 12/22/2024 What Is Your Level Of Caffeine Consumption? Moderate [email or web address] Information not available 12/22/2024 How Much Tobacco Do You Chew? None [email or web address] Information not available 12/22/2024 In The 14 Days Before Symptom Onset, Have You Had Close Contact With A Laboratory-confir med COVID-19 While That Case Was Ill? No [email or web address] Information not available 12/22/2024 In The 14 Days Before Symptom Onset, Have You Had Close Contact With A Person Who Is Under Investigation For COVID-19 While That Person Was Ill? No Information not available 12/22/2024 Have You Been To An Area Known To Be High Risk For COVID-19? No [email or web address] Information not available 12/22/2024 Are You Deaf Or Do You Have Serious Difficulty Hearing? No [email or web address] Information not available 12/22/2024 What Type Of Diet Are You Following? REGULAR [email or web address] Information not available 12/22/2024 Do You Or Have You Ever Used E-cigarettes Or Vape? Former User Of Electronic Cigarettes [email or web address] Information not available 12/22/2024 What Is The Highest Grade Or Level Of School You Have Completed Or The Highest Degree You Have Received? 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 No Information not available 12/22/2024 Do You Use Protection During Sex? No [email or web address] Information not available 12/22/2024 Do You Use Your Seat Belt Or Car Seat Routinely? Yes [email or web address] Information not available 12/22/2024 Do You Have Smoke And Carbon Monoxide Detectors In Your Home? Yes [email or web address] Information not available 12/22/2024 How Much Tobacco Do You Smoke? No [email or web address] Information not available 12/22/2024 Do You Feel Stressed (tense, Restless, Nervous, Or Anxious, Or Unable To Sleep At Night)? [id number] [email or web address] Information not available 12/22/2024 Do You Use Any Illicit Or Recreational Drugs? No [email or web address] Information not available 12/22/2024 Do You Use Sunscreen Routinely? Yes [email or web address] Information not available 12/22/2024 Have You Used IV Drugs? No [email or web address] Information not available 12/22/2024 Do You Or Have You Ever Used Any Other Forms Of Tobacco Or Nicotine? Yes [email or web address] Information not available 12/22/2024 Sex: Unknown Functional Status Question Answer Note LastModified by Organizat ion Details LastModified Time Do you have difficulty walking or climbing stairs? No [email or web address] Information not available 12/22/2024 Are you able to walk? YESWOREST [email or web address] Information not available 12/22/2024 Are you able to care for yourself? Yes [email or web address] Information not available 12/22/2024 Do you have difficulty dressing or bathing? No [email or web address] Information not available 12/22/2024 What is your exercise level? Occasional [email or web address] Information not available 12/22/2024 Mental Status None recorded. Family History Relationship Description Onset Age of this Age Resolved Age Notes LastModified by Organization Details LastModified Time Paternal Grandfather Disorder of lung [email or web address] Not available 12/22 11:02:50 Father Disorder of lung [email or web address] Not available 12/22 11:02:50 Medical History Condition Response Allergies (Food, seasonal, environmental ) N Other N Breast Cancer N Drug/Latex Allergies/Reactions N Blood Transfusion N Dermatologic Disorders N Lung Disease N Defects or Inherited Disease N Breast Problem N Gestational Diabetes N Hematologic disorders N Anesthesia Complications N History of STI Y Deep Vein Thrombosis N Polycystic ovary syndrome Y Anxiety Disorder Y Autoimmune disease N Arthritis N Infertility N Polyps N Acid Reflux (GERD) N History of abnormal pap N Cancer N Stroke N Varicosities N Neurologic/Epilepsy N Endometriosis N High Cholesterol N Headaches N Fibromyalgia N Kidney Disease N Heart Problems N Kidney or Bladder Problems N Thyroid Problems N GI Problems N Eating Disorder N Anemia N Art (IVF or FET) N Psychiatric Illness N Ovarian Cancer N Diabetes N Pulmonary (TB, Asthma) N Hepatitis/Liver Disease N No Past Medical History N Eczema N Urinary Tract Infection N Abuse/Domestic Violence N Asthma Y Trauma/Violence N Depression/ depression Y Heart Disease N Pre-Eclampsia N Hypertension N Osteoporosis N Thrombophilias N Gynecological History Statement/Question Response Date of Last Mammogram Flow Heavy Date of LMP 10/20/2024 N Was last menstrual period normal Y STIs/STDs Y Date of Last Colonoscopy None Desired Control Method None Abnormal Pap N On BCP's at Conception? N HPV Vaccine Y Duration of Flow (days) 5 Current Control Method Are cycles usually normal N Frequency of Cycle (Q days) 28 Sexually Active? Y Menses Monthly Y Date of DEXA bone scan Age of first menstrual cycle 14 Date of Last Pap Smear 01/12/2025 Sexual Problems? N LMP Approximate N Obstetrics History GPAL:G 1 P 0 0 0 0 Type Value Living 0 Total 1 Past Encounters Encounter ID Performer Location Encounter Start Date Encounter Closed Date Diagnosis/Indication Diagnosis SNOMED-CT Code Diagnosis ICD10 Code Diagnosis Note [id number] [facility] [address],[place] [address] 12/22/2024 09:51:43 12/22/2024 10:33:52 [id number] Kae Strange [facility] [place] [address],[place] [address] 12/22/2024 09:52:25 12/22/2024 12:28:36 Amenorrhea 75790726 N91.2 reviewed office , precaution s, handoutpla n 12 week new ob and first lookreview ed US, umbilical cord cyst f/u 4 weeks [id number] [facility] [address],[place] [address] 01/12/2025 11:48:28 01/12/2025 12:18:04 screening [id number] Z36.82 Z3A.12 [id number] Kae Strange CNM [place] [address],[place] [address] 01/12/2025 11:51:54 01/13/2025 10:29:48 Gestation period, 12 weeks [id number] Z3A.12 Health Concerns Section Related Observation LastModified by Organization Detai ls LastModified Time None Recorded Concern Status LastModified by Organization Details LastModified Time None Recorded Advance Directives Directive N: Payers Encounter Date Sequence Insurance Name Policy Number Policy Peralta Covered Member ID Peralta Member ID Guarantor Name 12/22/2024 1 *SELF PAY* Clint Seaman 12/22/2024 1 *SELF PAY* Clint Seaman 01/12/2025 1 SERVANDO CROWDER-OLLIE (PPO) [id number] 1 Danette Seaman [id number] Danetteaman Seaman 01/12/2025 1 SERVANDO PEÑALOZABS-OLLIE (PPO) [id number] 1 Danette Seaman [id number] Danette Seaman Notes Date Note Type Note Provider Name and Address Organization Details Recorded Time 12/22/2024 text/html amenorrhea, pcos, asthma+UPTnot trying but really excited about [address], [place], [address], [place] [facility] 12/22/2024 11:57:38 OBGyn Episode Ob Episode Information Episode Created Date Number of Fetuses Patient Bloodtype Patient rh Status Prepregnancy Weight lbs Domestic Partner Domestic Partner Phone Father Name Assurance Senior Status 01/13/20 25 1 182 Ko Daab OPEN Fetus Data First Name Last Name Admitted to NICU Weight (g) Sex Living Outcome Pediatric Complications Fetus ID Race Codes Race Delivery Type [id number] Problems Problem Notes hx of chlamydia Problem Name Start Date End Date Resolution Snomed Code Not e History of depression [id number] no current meds Polycystic ovary syndrome [id number] Asthma [id number] no meds Maxim Calculation Initial Maxim Date Initial Exam Date Initial Exam Provider Initial Ultrasound Date Last Menstrual Period Date Ultra Sound Weeks Gestation 07/27/2025 12/22/2024 Kea Strange 12/22/2024 10/20/2024 8 Eighteen To Twenty Week Maxim Update Ultra Sound Date Fundal Height At Umbil Quickening Date Ultra Sound Latest Weeks Gestation Final Maxim Confirmed By Final Maxim Confirmed Date Final Maxim Date Ultra Sound Latest Days Gestation 0 07/27/20 25 0 Pre-minh Flowsheet Flowsheet Date 01/12/2025 Gramajo Score Blood Edema Fundus Height Fundus Units Glucose Ketones Leukocytes Nitrite Labor Signs Protein Cervic Dilation Cervic Effacement Cervic Station neg none none trace Type Weight in lbs Pre/Post Dialysis Refused Weight 186.372776525915 BP Diastolic BP Location Tested BP Systolic BP Type 86 129 Fetus Heart Rate Present Fetus Movement A Yes Comments reviewed us wnl, first pregn giovanny with previous hx of chlamydia, rec bASA daily, pap today with labs, begin routine care Menstrual History Last Menstrual Date Menses Monthly On Bcp Conception Prior Menses Frequency Hcg Plus Date Menarche Onset Age 1210/20/2024 Delivery Information Delivery Date Delivery Type Labor Anesthesia Weeks Gestation Incision Type Labor Labor Length Hrs Delivered By Post Complications Tubal Sterilization Discharge Date Comments Discharge Information Feeding Method Contraceptive Method Maternal HG B and HCT Levels
--- OUTSIDE RECORDS SUMMARY | 2025-01-25 18:24 | XMS_ITS | Encounter Summary ---
Author Organization [facility] Address [address] [place] [address] Care Team Providers Care Staff Auditor Name Role Phone Brooks Rebolledo MD Primary Care Provider + Encounter Details Date Type Department Care Team (Late st Contact Info) Description 09/30/2022 [employer] Message Enc [facility] Medical Group Family and Sports Medicine - [place] [address] [place] [address] [facility] Schedule Appointment: Annual Physical Due Social History Tobacco Use Types Packs/Day Years Used Date Smoking Tobacco: Never Smokeless Tobacco: Never Alcohol Use Standard Drinks/Week Comments Yes 0 (1 standard drink = 0.6 oz pur e alcohol) SOCIAL AUDIT-C Answer Date Recorded Frequency of Alcohol Consumption Never 02/08/2019 Average Number of Drinks Not on file 019 Frequency of Binge Drinking Not on file 06/2019 PHQ-2 Answer Date Recorded PHQ-2 Score - If the patient scores above 3, please move on to questions 3-9 4 11/08/2020 Comments No Sex and Gender Information Value Date Recorded Sex Assigned at Not on file Legal Sex Female 1:24 PM CDT Gender Identity Not on file Sexual Orientation Not on file documented as of this encounter Plan of Treatment Not on file documented as of this encounter Visit Diagnoses Not on filedocumented in this encounter Additional Health Concerns Assessment Noted Time PHQ-9 Depression Total Score: 13 021 10:11 AM LEGISLATIVE CORRESPONDENT documented as of this encounter Care Teams Staff Auditor Relationship Specialty Start Date End Date Brooks Rebolledo MD [address] [place] [address] PCP - General FAMILY PRACTICE 11/06/20 documented as of this encounter
--- OUTSIDE RECORDS SUMMARY | 2025-01-25 18:24 | XMS_ITS | Clinical Summary ---
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
--- OUTSIDE RECORDS SUMMARY | 2025-01-25 18:24 | XMS_ITS | Encounter Summary ---
Author Organization [facility] Address [address] [place] [address] Care Team Providers Care Federal Judicial Law Clerk Name Role Phone Brooks Rebolledo MD Primary Care Provider + Encounter Details Date Type Department Care Team (Late st Contact Info) Description 07/30/2022 [employer] Message Enc [facility] Medical Group Family and Sports Medicine - [place] [address] [place] [place] [address] [facility] Schedule Appointment: Annual Physical Social History Tobacco Use Types Packs/Day Years [...] Depression Total Score: 13 021 10:11 AM 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
== END 2025-01-25 18:15 | disposition home or self-care (01) ==
PROVIDERS: Emergency Provider Registered Nurse; PCP Advanced Practice Midwife
DX: O46.91 Antepartum hemorrhage, unspecified, first trimester (principal); Z3A.13 13 weeks gestation of pregnancy; O23.41 Unspecified infection of urinary tract in pregnancy, first trimester; N39.0 Urinary tract infection, site not specified; O23.591 Infection of other part of genital tract in pregnancy, first trimester; B96.89 Other specified bacterial agents as the cause of diseases classified elsewhere
CPT/HCPCS: 36415; 76801; 80053; 81001; 81025; 85025; 85610; 85730; 96365; 99284; A9270; J0696; J7030

== ENCOUNTER 2025-06-16 09:09 | Inpatient (IN) | payer BC, SELFPAY ==
[2025-06-16] VITALS (70 sets, daily range): BP systolic 105–135; BP diastolic 69–84; PULSE 84–107; RESP 16–18; TEMP 36.4–37.1; O2SAT 95–100; BMI 39.6
--- OUTSIDE RECORDS SUMMARY | 2025-06-16 09:23 | XMS_ITS | Encounter Summary ---
Author Organization [facility] Address [address] [place] [address] Care Team Providers Care Artificial Breast Fabricator Name Role Phone Brooks Rebolledo MD Primary Care Provider + Encounter Details Date Type Department Care Team (Late st Contact Info) Description 09/30/2022 [employer] Message Enc [facility] Medical Group Family and Sports Medicine - [place] [address] [place] [address] [facility] Provider Schedule Appointment: Annual Physical Due Social [...] Depression Total Score: 13 021 10:11 AM EDUCATIONAL AUDIOLOGIST documented as of this encounter Care Teams Artificial Breast Fabricator Relationship Specialty Start Date End Date Brooks Rebolledo MD [address] [place] [address] PCP - General FAMILY PRACTICE 11/06/20 documented as of this encounter
--- OUTSIDE RECORDS SUMMARY | 2025-06-16 09:23 | XMS_ITS | Encounter Summary ---
Author Organization [facility] Address [address] [place] [address] Care Team Providers Care In Flight Refueling Operator Name Role Phone Brooks Rebolledo MD Primary Care Provider + Encounter Details Date Type Department Care Team (Late st Contact Info) Description 07/30/2022 [employer] Message Enc [facility] Medical Group Family and Sports Medicine - [place] [address] [place] [address] [facility] Provider Schedule Appointment: Annual Physical Social [...] Depression Total Score: 13 021 10:11 AM PEOPLESOFT FINANCIAL DEVELOPER documented as of this encounter Care Teams In Flight Refueling Operator Relationship Specialty Start Date End Date Brooks Rebolledo MD [address] [place] [address] PCP - General FAMILY PRACTICE 11/06/20 documented as of this encounter
--- OUTSIDE RECORDS SUMMARY | 2025-06-16 09:23 | XMS_ITS | Clinical Summary ---
Author Organization [facility] Address [address] [place] [address] Care Team Providers Care Counter Clerk Name Role Phone Unavailable Primary Care Provider Unavailabl e Source Comments [facility],non-owned Affiliates and Associated Physician Practices is amultiple site organization consisting of ambulatory clinics and hospital sitesin [place], [place], [place] and [place]. This disclosure is being madepursuant to the Care Everywhere program and may not contain all information available regarding this patient. Last updated 18.I and love and you [facility] Allergies No known active allergies Medications * Be aware that medications may not be up to date on this document. Alwaysverify current medications with the patient. fluticasone propionate (FLONASE) 50 MCG/ACT nasal sprayIndications :Acute otitis media, unspecified otitis media type [place] 2 sprays into each nostril once daily 1 bottles 9 Active albuterol HFA (VENTOLIN HFA) 108 (90 BASE) MCG/ACT inhalerIndicatio ns:Acute bronchitis, unspecified organism Inhale 2 puffs by mouth every 6 hours as needed for Wheezing or Cough 1 Inhaler 9 Active Active Problems No known active problems [...] = 0.6 oz pur e alcohol) occ Comments No Sex and Gender Information Value Date Recorded Sex Assigned at Not on file Legal Sex Female 8:05 PM REVIEW ASSISTANT Gender Identity Not on file Sexual Orientation Not on file Last Filed Vital Signs Vital Sign Reading Time Taken Comments Blood Pressure 108/70 11/10/2018 10:24 AM REVIEW ASSISTANT Pulse 88 11/10/2018 10:24 AM REVIEW ASSISTANT Temperature 37 C (98.6 F) 11/10/2018 10:24 AM REVIEW ASSISTANT Respiratory Rate 17 11/10/2018 10:24 AM REVIEW ASSISTANT Oxygen Saturation 98% 11/10/2018 10:24 AM REVIEW ASSISTANT Inhaled Oxygen Concentration - - Weight 65.8 kg (145 lb) 11/10/2018 10:24 AM REVIEW ASSISTANT Height 157.5 cm (5' 2) 11/10/2018 10:24 AM REVIEW ASSISTANT Body Mass Index 26.52 11/10/2018 10:24 AM REVIEW ASSISTANT Plan of Treatment Health Maintenance Due Date Last Done Comments HIV SCREENING 01/16/2012 HEPATITIS C SCREENING 01/11/2015 DTAP/TDAP/TD VACCINES (1 - Tdap) 01/16/2016 HEPATITIS B VACCINE (1 of 3 - 19+ 3-dose series) 01/16/2016 HPV VACCINE (1 - 3-dose SCDM series) 01/16/2024 COVID-19 VACCINE (1 - 2023-2 5 season) 2024 DEPRESSION SCREENING 11/03/2024 INFLUENZA VACCINE (#1) 2025 ZOSTER VACCINE (1 of 2) 2047 HIB [...] on patient's age to complete this topic Insurance ANTHEM ANTHEM
--- OUTSIDE RECORDS SUMMARY | 2025-06-16 09:23 | XMS_ITS | Clinical Summary ---
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 Gender Identity Not on file Sexual Orientation Not on file Plan of Treatment Health Maintenance Due Date Last Done Comments Hepatitis C Virus (HCV) Screening 1997 SARS-COV-2 Immunization ( season) 2024 Influenza Immunization (#1) 2025 11/0 11/2014, 10/06/2013, 07/10/2011 Respiratory Syncytial Virus (RSV) Immunization (Adult) (1 - 1-dose 75+ series) 01/16/2072 Hepatitis B Immunization Completed 998, 1997, 1997 DTaP/Tdap/Td Immunization Discontinued 2008, 01/17/2001, 08/29/1998, Additional history exists Meningococcal Immunization (ACWY) Aged Out 06/29/2009 No longer eligible based on patient's age to complete this topic TdaP Immunization Completed 06/29/2009 Human Papillomavirus (HPV) Immunization Completed 06/17/2011, 11/10/2010, 07/03/2010 Pneumococcal Immunization Combined Aged Out No longer eligible based on patient's age to complete this topic Rotavirus Immunization Aged Out No lo nger eligible based on patient's age to complete this topic
--- OUTSIDE RECORDS SUMMARY | 2025-06-16 09:24 | XMS_ITS | Clinical Summary ---
Author Organization [facility] Address [address] [place] [address] Care Team Providers Care Opener Tender Name Role Phone Brooks Rebolledo MD Primary Care Provider [phone] Allergies No known active allergies Medications No known medications Active Problems No known active problems Immunizations Immunization Administration Dates Next Due Dtap 01/17/2001, 8,1997,1996,1997 Fluzone 6 Months+ Quad (0.5 mL Prefilled Syringe) 11/08/2020 HPV4 (Gardasil) 06/17/2011,11/10/2010,07/03/2010 Hepatitis B (Generic Peds) 02/09/1998,1997 ,1997 IPV/OPV 01/17/2001,1997,1997 Influenza Adult (Generic) 10/20/2021 MMR 03/01/2003,02/09/1998 Menactra 06/29/2009 Opv 08/29/1998 [email or web address] COVID-19 (ORIGINAL FORMULATION, PURPLE CAP) mRNA, LNP-S, [...] 8:13 AM CDT Height 157.5 cm (5' 2) 05/05/2024 8:13 AM CDT Body Mass Index 30.73 05/05/2024 8:13 AM CDT Plan of Treatment Health Maintenance Due Date Last Done Comments Cervical Cancer Screening Pap Smear (Age 21 to 29) Every 3 Years 1997 Cervical Cancer Screening 1997 DTaP, Tdap and Td Vaccines (7 - Td or Tdap) 06/29/2019 06/29/2009, 01/17/2001, 08/29/1998, Additional history exists COVID-19 Vaccine ( season) 2024 10/20/2021, 02/20/2021, 01/30/2021, Additional history exists PHQ-2 (Physician Cheesh-Na) 11/03/2024 05/05/2024 Annual Physical 05/05/2025 05/05/2024, 11/08/2020 Hepatitis B Vaccines Completed 02/09/1998, 1997, 1997 Meningococcal Vaccine Aged Out 06/29/2009 No tom rafael eligible based on patient's age to complete this topic HPV Vaccines Completed 06/17/2011, 06/2011, 07/03/2010 Hepatitis C Completed 05/05/2024 Meningococcal B Vaccine Aged Out No l onger eligible based on patient's age to complete this topic Pneumococcal Vaccine: Pediatrics (0 to 5 Years) and At-Risk Patients (6 to 49 Years) Aged Out No longer eligible based on [...] VE NON-REACT ABDIRAHMAN 05/05/2024 7:34 PM CDT [facility] Comment: ANTIBODIES TO HCV NOT DETECTED. DOES NOT EXCLUDE THE POSSIBILITY OF EXPOSURE TO HCV. 05/05/2024 8:53 AM CDT Brooks Rebolledo MD LABORATORY Final Result [facility] [address] [place], [place] [address], [id number] from Last 3 Months or Most Recently Relevant to Health Maintenance Insurance [facility] Care Teams Opener Tender Relationship Specialty Start Date End Date Brooks Rebolledo MD [address] [id number] PCP - General FAMILY PRACTICE 11/06/20
[2025-06-16] MEDS: LACTATED RINGERS 1,000 ML 75 ML IV CONT (10:05)
[2025-06-16] MEDS: MAGNESIUM SULF 4 GM/WATER100ML 4 GM/100 ML BAG IVPB (10:07)
--- NOTE | 2025-06-16 10:07 | OBADM ---
This patient, Danette Seaman, admitted to the OB room 115 for observation. Patient/family oriented to hospital policies and general routines including ID bracelet, bed and alarms, visiting hours, pain management, procedures, bathroom and other care routines, personal items, smoking policy, room service/diet, and visiting hours. Patient/Family are encouraged to report perceived risks to care and to ask questions if they do not understand what they are told or what they should do.
[2025-06-16] MEDS: BETAMETHASONE SOD PHOS/ACETATE 30 MG/5 ML VIAL 12 MG IM (10:14)
[2025-06-16] MEDS: MAGNESIUM SULF 20GM/WATER500ML 500 ML 50 MG IV CONT (10:42)
[2025-06-16 11:37] LABS: Hematocrit 36.1 % (37.0-47.0); Hemoglobin 12.1 g/dL (12.0-15.0); Immature Granulocyte Percent A 0.7 % (0-0.5); Lymphocytes Absolute Auto 1.94 K/mm3 (0.9-3.2); Mean Corpuscular HGB Conc 33.5 g/dl (32-36); Mean Corpuscular Hemoglobin 29.1 pg (26-34); Mean Corpuscular Volume 86.8 fl (80-100); Nucleated Red Blood Cells Absolute Auto 0.000 K/mm3 (0.0-0.012); Nucleated Red Blood Cells Perc 0.0 % (0.0-0.2); Platelet Count Result 203 k/mm3 (150-375); Red Blood Count 4.16 M/mm3 (4.2-5.4); White Blood Count 13.0 K/mm3 (4.5-10.0)
[2025-06-16] MEDS: TERBUTALINE SULFATE 1 MG/ML VIAL 0.25 MG SUB-Q (12:15)
[2025-06-16 12:34] LABS: Add Urine Microscopic? YES; Appearance Urine Cloudy (Clear); Glucose Urine UA Negative (Negative); Leukocyte Esterase Ur Trace LEU/UL (Negative); Nitrate Urine Negative (Negative); Non Pathogenic Casts 0-2; Specific Grav Ur 1.017 (1.001-1.035)
--- NOTE | 2025-06-16 13:15 | P.HP_ITS ---
H&P: HPI History of Present Illness Date/Time: 06/16/25 13:15 Chief Complaint: Contractions Narrative: This patient is a 30-year-old her 1 at 34 weeks gestation who presented in labor. She is toñito and had cervical dilation of 4 cm. She was observed. Serial cervical exams revealed cervical change. She was dilated 5-6 in her 2nd cervical exam. Initially magnesium sulfate and steroids were given. As labor advanced magnesium sulfate was discontinued. She was given antibiotics. Reassuring status. Expectant management. Review of Systems Review of Systems: All systems reviewed & are unremarkable except as noted in HPI and below Constitutional: Constitutional: Denies chills, Denies fatigue, Denies fever(s) and Denies weakness Eyes: Eyes: Denies blurry vision, Denies change in vision, Denies loss of p eripheral vision, Denies loss of vision, Denies other visual disturbances and Denies eye pain ENT: Denies vertigo, Denies dizziness, Denies hearing loss, Denies mouth pain, Denies nasal obstruction, Denies neck mass and Denies neck pain Cardiovascular: Cardiovascular: Denies chest pain, Denies diaphoresis, Denies syncope, Denies leg edema and Denies dyspnea Respiratory: Respiratory: Denies chest congestion, Denies cough, Denies hemoptysis, Denies dyspnea and Denies wheezing Gastrointestinal: Gastrointestinal: Denies abdominal pain, Denies constipation, Denies diarrhea, Denies nausea and Denies vomiting Genitourinary: Genitourinary: Denies hematuria, Denies change in libido, Denies nocturia, Denies genital lesions, Denies flank pain and Denies urinary urgency Musculoskeletal: Musculoskeletal: Denies abnormal gait, Denies back pain, Denies myalgias, Denies arthralgias, Denies joint swelling, Denies muscle weakness and Denies neck pain Integumentary/Breasts: Skin/Breast: Denies swelling, Denies breast pain, Denies breast mass, Denies dry skin, Denies nipple discharge, Denies unusual bruising and Denies jaundice Neurologic: Denies Neuro-related abnormal movements, Denies Abnormal speech present, Denies abnormal gait, Denies behavioral changes, Denies confusion, Denies vertigo, Denies dizziness, Denies syncope, Denies loss of vision, Denies memory loss, Denies convulsions and Denies weakness Psychiatric: Psychiatric: Denies abnormal sleep pattern, Denies behavioral changes, Denies change in libido, Denies confusion, Denies depression, Denies anhedonia and Denies memory loss Endocrine: Endocrine: Reports no additional endocrine complaints, Denies change in libido and Denies fatigue Hematologic/Lymphatic: Hematologic/Lymphatic: Reports no additional hematologic/lymphatic complaints Allergic/Immunologic: Allergic/Immunologic: Reports no additional allergic/immunologic complaints and Denies wheezing PMFSH Social History Social History Lack of Transportation: No Lack of Food: Never True Current Housing: I Have Housing Concerned About Future Housing: No Difficulty Paying Gas/Electric Bills: No Difficulty Paying for Meds: No Currently Unemployed: No Education: High School Diploma/GED Difficulty w/ Childcare or Family Care: No Meds Home Medications and Allergies Home Medications ?Medication ?Instructions ?Recorded ?Confirmed ?Type aspirin 81 mg tablet 81 mg PO DAILY 06/16/25 06/16/25 History ferrous sulfate 142 mg (45 mg 142 mg PO DAILY 06/16/25 06/16/25 History iron) tablet,extended release (Slow Release Iron) vit no.95-ferrous 1 tablet PO HS 06/16/25 06/16/25 History fumarate 28 mg-folic acid 800 mcg tablet () Allergies Allergy/AdvReac Type Severity Reaction Status Date / Time bee venom protein (honey bee) Allergy Rash Verified 06/16/25 10:35 Vital Signs Vital Signs - 24 hr 06/16/25 09:29 06/16/25 09:30 06/16/25 10:00 Temperature Pulse Rate 94 93 88 Respiratory Rate Blood Pressure 120/80 130/80 121/80 Pulse Oximetry Oxygen Delivery 06/16/25 10:01 06/16/25 10:06 06/16/25 10:07 Temperature 98.6 F Pulse Rate Respiratory Rate 16 Blood Pressure Pulse Oximetry 100 100 100 Oxygen Delivery 06/16/25 10:07 06/16/25 10:09 06/16/25 10:11 Temperature Pulse Rate 87 Respiratory Rate Blood Pressure 119/76 Pulse Oximetry 100 Oxygen Delivery Room Air 06/16/25 10:16 06/16/25 10:21 06/16/25 10:22 Temperature Pulse Rate 91 Respiratory Rate Blood Pressure 124/79 Pulse Oximetry 95 99 Oxygen Delivery 06/16/25 10:26 06/16/25 10:30 06/16/25 10:31 Temperature Pulse Rate 91 Respiratory Rate Blood Pressure 119/77 Pulse Oximetry 97 97 Oxygen Delivery 06/16/25 10:36 06/16/25 10:41 06/16/25 10:43 Temperature Pulse Rate 86 Respiratory Rate Blood Pressure 122/78 Pulse Oximetry 97 97 Oxygen Delivery 06/16/25 10:45 06/16/25 10:46 06/16/25 10:51 Temperature Pulse Rate 88 Respiratory Rate Blood Pressure 121/72 Pulse Oximetry 98 96 Oxygen Delivery 06/16/25 10:56 06/16/25 11:00 06/16/25 11:01 Temperature Pulse Rate 86 Respiratory Rate Blood Pressure 125/75 Pulse Oximetry 99 97 Oxygen Delivery 06/16/25 11:06 06/16/25 11:11 06/16/25 11:15 Temperature Pulse Rate 88 Respiratory Rate Blood Pressure 125/77 Pulse Oximetry 100 99 Oxygen Delivery 06/16/25 11:16 06/16/25 11:21 06/16/25 11:26 Temperature Pulse Rate 87 Respiratory Rate Blood Pressure 120/76 Pulse Oximetry 100 98 97 Oxygen Delivery 06/16/25 11:31 06/16/25 11:36 06/16/25 11:41 Temperature Pulse Rate Respiratory Rate Blood Pressure Pulse Oximetry 98 100 100 Oxygen Delivery 06/16/25 11:59 06/16/25 12:00 06/16/25 12:04 Temperature Pulse Rate 92 Respiratory Rate Blood Pressure 123/74 Pulse Oximetry 100 100 Oxygen Delivery 06/16/25 12:09 06/16/25 12:13 06/16/25 12:14 Temperature Pulse Rate 89 Respiratory Rate Blood Pressure 116/72 Pulse Oximetry 98 99 Oxygen Delivery 06/16/25 12:19 06/16/25 12:24 06/16/25 12:29 Temperature Pulse Rate Respiratory Rate Blood Pressure Pulse Oximetry 100 100 100 Oxygen Delivery 06/16/25 12:34 06/16/25 12:39 06/16/25 12:44 Temperature Pulse Rate Respiratory Rate Blood Pressure Pulse Oximetry 100 100 100 Oxygen Delivery 06/16/25 12:49 Temperature Pulse Rate Respiratory Rate Blood Pressure Pulse Oximetry 100 Oxygen Delivery Exam Const: General: cooperative, healthy appearing, comfortable and no acute distress Orientation/consciousness: oriented to person, oriented to place and oriented to time HENMT: Head: normal to inspection Ears: external ears normal Face/Nose/Sinus: Normal external nose present and normal facial exam Face and sinus: normal facial exam Eyes: General: appearance normal, both eyes and all related structures Neck: Neck: normal visual inspection, trachea midline and supple Resp: Auscultation: clear to auscultation bilaterally, no crackles, no rales, no rhonchi and no wheezes Cardio: Rate: regular rate Rhythm: regular rhythm Heart sounds: no click, no murmurs and no rubs GI: GI Palp: No abdominal tenderness, No Soft to palpation, No Tenderness to palpation present (GI) and No Palpable mass present Auscultation: normal bowel sounds Skin: General skin exam: normal color and no rashes or lesions noted Neuro: General: oriented to person, oriented to place and oriented to time Extrem: General: normal to inspection, no joint enlargement, no clubbing, cyanosis or edema, no pedal edema and no calf tenderness Psych: Appearance: grossly normal Mental Status: mental status grossly normal Speech and movement: Normal speech and movement present H&P: Results Labs Labs: Short CBC 06/16/25 Range/Units 11:25 WBC 13.0 H (4.5-10.0) K/mm3 Hgb 12.1 (12.0-15.0) g/dL Hct 36.1 L (37.0-47.0) % Plt Count 203 (150-375) k/mm3 Urine 06/16/25 Range/Units 11:25 Urine Color Yellow (Yellow) Urine Appearance Cloudy H (Clear) Urine pH 7.0 (5.0-9.0) Ur Specific [place] 1.017 (1.001-1.035) Urine Protein Negative (Negative) mg/dL Urine Glucose (UA) Negative (Negative) mg/dL Assessment and Plan Assessment and plan (1) labor: Code(s): O60.00 - labor without delivery, unspecified trimester Status: Acute Plan This patient is a 30-year-old her 1 at 34 weeks gestation who presented in labor. She is toñito and had cervical dilation of 4 cm. She was observed. Serial cervical exams revealed cervical change. She was dilated 5-6 in her 2nd cervical exam. Initially magnesium sulfate and steroids were given. As labor advanced magnesium sulfate was discontinued. She was given antibiotics. Reassuring status. Expectant management.
[2025-06-16] MEDS: AMPICILLIN SODIUM 2 GM in SODIUM CHLORIDE 0.9% IV 100 ML 200 ML IVPB (13:32)
[2025-06-16 14:05] LABS: Syphilis IgG/IgM Antibody Non-Reactive (Nonreactive)
--- NOTE | 2025-06-16 14:36 | LDADM ---
This patient, Danette Seaman, was admitted to Labor/Delivery/Recovery 105 on 06/16/25 at 12:44. Plans for labor, pain management and were discussed with patient. Patient/family oriented to hospital policies and general routines including ID bracelet, bed and alarms, visiting hours, pain management, procedures, bathroom and other care routines, personal items, smoking policy, room service/diet and guest tray routines, infant security routines, and visiting hours. Patient/Family are encouraged to report perceived risks to care and to ask questions if they do not understand what they are told or what they should do. See [facility]BI[facility] for further documentation.
--- NOTE | 2025-06-16 17:09 | P.PNAN_ITS ---
Anes - Eval Pre Procedure Procedure: Labor epidural Date/Time: 06/16/25 17:09 Surgeon: Bita Preop Diagnosis: Abdominal pain with contractions Pre Op Diagnosis: Labor Patient Data Age: 30 Gender: F Height: 1.57 m Weight: 98.5 kg Last Vital Signs Temp 98.4 F 06/16/25 16:00 Pulse 91 06/16/25 17:00 Resp 18 06/16/25 16:00 BP 135/80 06/16/25 17:00 Pulse Ox 100 06/16/25 12:49 O2 Del Method Room Air 06/16/25 10:07 Allergies Allergy/AdvReac Type Severity Reaction Status Date / Time bee venom protein (honey bee) Allergy Rash Verified 06/16/25 10:35 Home Medications ?Medication ?Instructions ?Recorded ?Confirmed ?Type aspirin 81 mg tablet 81 mg PO DAILY 06/16/25 06/16/25 History ferrous sulfate 142 mg (45 mg 142 mg PO DAILY 06/16/25 06/16/25 History iron) tablet,extended release (Slow Release Iron) vit no.95-ferrous 1 tablet PO HS 06/16/25 06/16/25 History fumarate 28 mg-folic acid 800 mcg tablet () Laboratory Tests 06/16/25 06/16/25 06/16/25 11:25 11:51 11:59 WBC 13.0 H K/mm3 (4.5-10.0) RBC 4.16 L M/mm3 (4.2-5.4) Hgb 12.1 g/dL (12.0-15.0) Hct 36.1 L % (37.0-47.0) MCV 86.8 fl (80-100) MCH 29.1 pg (26-34) MCHC 33.5 g/dl (32-36) RDW 13.9 % (11.5-14.5) Plt Count 203 k/mm3 (150-375) MPV 11.8 H fl (7.4-10.4) Immature Gran % (Auto) 0.7 H % (0-0.5) Neut % (Auto) 77.8 H % (45.5-73.1) Lymph % (Auto) 14.9 L % (18.3-44.2) [place] % (Auto) 5.5 % (2.6-8.5) Eos % (Auto) 0.9 % (0-4.4) Baso % (Auto) 0.2 % (0.2-1.2) Lymph # (Auto) 1.94 K/mm3 (0.9-3.2) [place] # (Auto) 0.7 H K/mm3 (0.1-0.6) Eos # (Auto) 0.1 K/mm3 (0-0.3) Baso # (Auto) 0.0 K/mm3 (0.0-0.1) Abs Immat Gran (auto) 0.09 H K/mm3 (0.00-0.031) Absolute Neuts (auto) 10.1 H K/mm3 (1.3-6.7) Absolute Nucleated RBC 0.000 K/mm3 (0.0-0.012) Nucleated RBC % 0.0 % (0.0-0.2) POC Capillary Glucose Urine Color Yellow (Yellow) Urine Appearance Cloudy H (Clear) Urine pH 7.0 (5.0-9.0) Ur Specific [place] 1.017 (1.001-1.035) Urine Protein Negative mg/dL (Negative) Urine Glucose (UA) Negative mg/dL (Negative) Urine Ketones 1+ H mg/dL (Negative) Ur Blood (Man) 2+ H (Negative) Urine Nitrate Negative (Negative) Urine Bilirubin Negative (Negative) Urine Urobilinogen 0.2 mg/dL (<2.0) Leukocyte Esterase Rfl Trace H ALICIA/UL (Negative) Urine RBC 6-10 H /hpf (0-2) Urine WBC 0-5 /hpf (0-3) Ur Squamous Epith Cells Occasional /hpf (Few) Urine Bacteria 1+ H /hpf Urine Casts 0-2 Syphilis IgG/IgM Ab Non-reactive (Nonreactive) Blood Type A Positive Antibody Screen Negative 06/16/25 06/16/25 13:48 16:32 WBC RBC Hgb Hct MCV MCH MCHC RDW Plt Count MPV Immature Gran % (Auto) Neut % (Auto) Lymph % (Auto) [place] % (Auto) Eos % (Auto) Baso % (Auto) Lymph # (Auto) [place] # (Auto) Eos # (Auto) Baso # (Auto) Abs Immat Gran (auto) Absolute Neuts (auto) Absolute Nucleated RBC Nucleated RBC % POC Capillary Glucose 100 mg/dl 115 H mg/dl (65-105) (65-105) Urine Color Urine Appearance Urine pH Ur Specific [place] Urine Protein Urine Glucose (UA) Urine Ketones Ur Blood (Man) Urine Nitrate Urine Bilirubin Urine Urobilinogen Leukocyte Esterase Rfl Urine RBC Urine WBC Ur Squamous Epith Cells Urine Bacteria Urine Casts Syphilis IgG/IgM Ab Blood Type Antibody Screen : gestational age HCG: positive Patient hx anesthesia problems: none Family hx anesthesia problems: none Results Review: All pre-operative results and documents have been reviewed as part of the pre- operative evaluation. [facility] Past Medical History Medical History Anxiety and depression Obesity Asthma PCOS (polycystic ovarian syndrome) and not yet delivered Family History Family History (Updated 06/16/25 @ 14:40 by Hollie Grace RN) Father Emphysema of lung Lung transplant status, bilateral Bladder cancer Mother Atrial fibrillation Osteoporosis Social History Social History Smoking status: Never smoker Second hand tobacco smoke exposure: No Substance use: never Lack of Transportation: No Lack of Food: Never True Current Housing: I Have Housing Concerned About Future Housing: No Difficulty Paying Gas/Electric Bills: No Difficulty Paying for Meds: No Currently Unemployed: No Education: High School Diploma/GED Difficulty w/ Childcare or Family Care: No Spiritual care concerns: No Exam Day of Procedure 06/16/25 17:09 Patient weight: obese Airway: Mallampati scale class II
[2025-06-16] MEDS: AMPICILLIN SODIUM 1 GM in SODIUM CHLORIDE 0.9% IV 50 ML 100 ML IVPB ×2 (18:09→22:43)
[2025-06-16] MEDS: LACTATED RINGERS 1,000 ML 125 ML IV CONT (20:30)
[2025-06-17] VITALS (90 sets, daily range): BP systolic 89–129; BP diastolic 51–81; PULSE 78–104; TEMP 37.1–37.4; O2SAT 96–100
[2025-06-17 00:52] LABS: OBXCEM ROM Plus Negative (Negative)
[2025-06-17] MEDS: AMPICILLIN SODIUM 1 GM in SODIUM CHLORIDE 0.9% IV 50 ML 100 ML IVPB ×2 (02:30→06:58)
[2025-06-17] MEDS: LACTATED RINGERS 1,000 ML 125 ML IV CONT (04:58)
[2025-06-17] MEDS: ONDANSETRON INJ 4 MG/2 ML VIAL IV PUSH (05:13)
--- NOTE | 2025-06-17 08:22 | PM.TDS ---
Transfer Discharge Sum: Prov Provider Date of admission: 06/16/25 12:44 Primary care physician: Kae Strange CNM Admitting clinician: Khalif Sunshine MD Consults: 06/16/25 13:16 Consult to Anesthesiology Routine Reason for consultation: Epidural Has provider been notified: Yes Attending physician on discharge: Fernando Pinon Discharging clinician: Fernando Pinon Anticipated date of transfer: 06/17/25 [facility] Dr. Selvin Ortega DS: Admitting Diagnosis Discharge Date 06/17/25 Admitting Diagnosis labor DS: Discharge Diagnosis Discharge Diagnosis (1) labor: Code(s): O60.00 - labor without delivery, unspecified trimester Status: Acute Assessment and Plan: - patient reports strong but irregular contractions - SVE 4cm on admission, 5cm at 1500 on 06/16, unchanged this AM - FHR category I - patient desires transfer to higher level of NICU care, discussed with Dr. Ortega at [facility] who accepts transfer - s/p BMZ x1 at 1015 on 06/16 - briefly received MgSO4 for tocolysis, however d/c'd 06/16 afternoon - ampicillin for GBS unknown (2) Glucose intolerance of : Code(s): O99.810 - Abnormal glucose complicating Status: Acute Assessment and Plan: - normal 1h GCT at 28 weeks - repeated at 33 weeks due to increased abdominal circumference at 92%; failed at 151 - glucose checks q4 hours Transfer Discharge Sum: Med Medications Active and Home Medications: Home Medications aspirin 81 mg tablet 81 mg PO DAILY 06/16/25 [History Confirmed 06/16/25] ferrous sulfate 142 mg (45 mg iron) tablet,extended release (Slow Release Iron) 142 mg PO DAILY 06/16/25 [History Confirmed 06/16/25] vit no.95-ferrous fumarate 28 mg-folic acid 800 mcg tablet () 1 tablet PO HS 06/16/25 [History Confirmed 06/16/25] Active Medications Atropine Sulfate (Atropine Sulfate 0.4 Mg/Ml Vial) 0.4 mg IV PUSH PRN PRN PRN Reason: Bradycardia Betamethasone Acet/Betameth SodPhos (Betamethasone Sod Phos/Acetate 30 Mg/5 Ml Vial) 12 mg IM Q24H ALEX Stop: 06/17/25 09:51 Last Admin: 06/16/25 10:14 Dose: 12 mg Calcium Gluconate (Calcium Gluconate 1,000 Mg/10 Ml Vial) 1,000 mg IV PUSH ONCE PRN PRN Reason: Magnesium toxicity Ephedrine Sulfate (Ephedrine Sulfate Inj 50 Mg/Ml Ampul) 5 mg IV PUSH Q5MIN PRN PRN Reason: for hypotension (syst. < 100) Fentanyl Citrate (Fentanyl Citrate Inj (*Crx) 100 Mcg/2 Ml Vial) 50 mcg IV PUSH Q1H PRN PRN Reason: Pain Rated 5 or Less Fentanyl Citrate (Fentanyl Citrate Inj (*Crx) 100 Mcg/2 Ml Vial) 100 mcg IV PUSH Q1H PRN PRN Reason: Pain Rated 6 or Greater Oxytocin/Sodium Chloride (Oxytocin 30 Units/Ns 500 Ml) 30 units in 500 mls @ 999 mls/hr IV CONT .Q31M PRN PRN Reason: if not received in labor Oxytocin/Sodium Chloride (Oxytocin 30 Units/Ns 500 Ml) 30 units in 500 mls @ 125 mls/hr IV CONT .Q4H PRN PRN Reason: if not received in labor Lactated Ringer's (Lr - Lactated Ringers Iv) 500 mls @ 999 mls/hr IV CONT .Q31M PRN PRN Reason: see Label Comments Lactated Ringer's (Lr - Lactated Ringers Iv) 1,000 mls @ 125 mls/hr IV CONT .Q8H [facility] Last Admin: 06/17/25 04:58 Dose: 125 mls/hr Ampicillin Sodium 1 gm/ Sodium (Chloride) 50 mls @ 100 mls/hr IVPB Q4H [facility] Last Admin: 06/17/25 06:58 Dose: 100 mls/hr Loratadine (Loratadine 10 Mg Tablet) 10 mg PO ONCE PRN PRN Reason: Itching Naloxone HCl (Naloxone Hcl 0.4 Mg/Ml Vial) 0.1 mg IV PUSH Q2M PRN PRN Reason: Respiratory rate less than 10 Naloxone HCl (Naloxone Hcl 0.4 Mg/Ml Vial) 0.1 mg IV PUSH ONCE PRN PRN Reason: for resp. rate less than 10 Ondansetron HCl (Ondansetron Inj 4 Mg/2 Ml Vial) 4 mg IV PUSH Q6H PRN PRN Reason: Nausea And Vomiting Last Admin: 06/17/25 05:13 Dose: 4 mg Phenylephrine/Sodium Chloride (Phenylephrine 1,000 Mcg/10 Ml Syringe) 100 mcg IV PUSH Q5MIN PRN PRN Reason: for hypotension (syst. < 100) Terbutaline Sulfate (Terbutaline Sulfate 1 Mg/Ml Vial) 0.25 mg SUB-Q PRN PRN PRN Reason: Contractions Last Admin: 06/16/25 12:15 Dose: 0.25 mg Terbutaline Sulfate (Terbutaline Sulfate 1 Mg/Ml Vial) 0.25 mg SUB-Q PRN PRN PRN Reason: Tachystole Transfer Discharge Sum: Hosp Hospital Course Hospital course: Danette Seaman is a 30 year old at 34w2d who presents for labor on 06/16. She denied leakage of fluid, vaginal bleeding. She rated her contractions a 6/10 in intensity. On admission, she was found to be 4cm dilated. BMZ and MgSO4 was started at 1015, as well as ampicillin for GBS unknown status. SVE was rechecked at 1500 and she was 5-6cm. MgSO4 was stopped at that time. She has had intermittent runs of strong contractions overnight. Her SVE has been unchagned since 06/16 afternoon. Due to gestation, patient desires transfer to higher level NICU facility. FHR has been category I since admission. Patient Condition: Stable Time Spent with Patient Time attestation: Total time spent providing and/or coordinating transfer services: Exam Const: General: comfortable and no acute distress Eyes: General: appearance normal, both eyes and all related structures Resp: Effort & Inspection: normal respiratory effort Cardio: Rate: regular rate : Other: SVE 5cm per RN Extrem: General: normal to inspection Psych: Mental Status: mental status grossly normal DS: Data Data Completed and Pending Labs on day of discharge: Labs from last 24 hours 06/17/25 06/17/25 06/17/25 04:59 00:47 00:13 WBC RBC Hgb Hct MCV MCH MCHC RDW Plt Count MPV Immature Gran % (Auto) Neut % (Auto) Lymph % (Auto) [place] % (Auto) Eos % (Auto) Baso % (Auto) Lymph # (Auto) [place] # (Auto) Eos # (Auto) Baso # (Auto) Abs Immat Gran (auto) Absolute Neuts (auto) Absolute Nucleated RBC Nucleated RBC % POC Capillary Glucose 96 194 H Urine Color Urine Appearance Urine pH Ur Specific [place] Urine Protein Urine Glucose (UA) Urine Ketones Ur Blood (Man) Urine Nitrate Urine Bilirubin Urine Urobilinogen Leukocyte Esterase Rfl Urine RBC Urine WBC Ur Squamous Epith Cells Urine Bacteria Urine Casts Membranes Rupture Rom plus negative Syphilis IgG/IgM Ab Blood Type Antibody Screen 06/16/25 06/16/25 06/16/25 20:42 16:32 13:48 WBC RBC Hgb Hct MCV MCH MCHC RDW Plt Count MPV Immature Gran % (Auto) Neut % (Auto) Lymph % (Auto) [place] % (Auto) Eos % (Auto) Baso % (Auto) Lymph # (Auto) [place] # (Auto) Eos # (Auto) Baso # (Auto) Abs Immat Gran (auto) Absolute Neuts (auto) Absolute Nucleated RBC Nucleated RBC % POC Capillary Glucose 87 115 H 100 Urine Color Urine Appearance Urine pH Ur Specific [place] Urine Protein Urine Glucose (UA) Urine Ketones Ur Blood (Man) Urine Nitrate Urine Bilirubin Urine Urobilinogen Leukocyte Esterase Rfl Urine RBC Urine WBC Ur Squamous Epith Cells Urine Bacteria Urine Casts Membranes Rupture Syphilis IgG/IgM Ab Blood Type Antibody Screen 06/16/25 06/16/25 06/16/25 11:59 11:51 11:25 WBC 13.0 H RBC 4.16 L Hgb 12.1 Hct 36.1 L MCV 86.8 MCH 29.1 MCHC 33.5 RDW 13.9 Plt Count 203 MPV 11.8 H Immature Gran % (Auto) 0.7 H Neut % (Auto) 77.8 H Lymph % (Auto) 14.9 L [place] % (Auto) 5.5 Eos % (Auto) 0.9 Baso % (Auto) 0.2 Lymph # (Auto) 1.94 [place] # (Auto) 0.7 H Eos # (Auto) 0.1 Baso # (Auto) 0.0 Abs Immat Gran (auto) 0.09 H Absolute Neuts (auto) 10.1 H Absolute Nucleated RBC 0.000 Nucleated RBC % 0.0 POC Capillary Glucose Urine Color Yellow Urine Appearance Cloudy H Urine pH 7.0 Ur Specific [place] 1.017 Urine Protein Negative Urine Glucose (UA) Negative Urine Ketones 1+ H Ur Blood (Man) 2+ H Urine Nitrate Negative Urine Bilirubin Negative Urine Urobilinogen 0.2 Leukocyte Esterase Rfl Trace H Urine RBC 6-10 H Urine WBC 0-5 Ur Squamous Epith Cells Occasional Urine Bacteria 1+ H Urine Casts 0-2 Membranes Rupture Syphilis IgG/IgM Ab Non-reactive Blood Type A Positive Antibody Screen Negative
== END 2025-06-17 09:22 | disposition designated cancer center or children's hospital (05) | DRG 833 ==
LOC: ANHOBPP 09:14 → ANHLDR 13:26
PROVIDERS: Admitting Provider Obstetrics & Gynecology; PCP Advanced Practice Midwife; Visit Provider Obstetrics & Gynecology
DX: O60.03 Preterm labor without delivery, third trimester (principal); O99.810 Abnormal glucose complicating pregnancy; Z3A.34 34 weeks gestation of pregnancy
CPT/HCPCS: 36415; 81001; 82948; 84112; 85025; 86593; 86850; 86900; 86901; 96365; 96366; 96372; G0378; G0379; J0290; J0702; J2405; J3105; J3475; J7120